=== PATIENT | male | born 1950 | race Caucasian/White ===

== ENCOUNTER 2024-10-25 17:46 | Inpatient (IN) ==
--- NOTE | 2024-10-25 18:21 | DR.CONMALE ---
HPI Time Seen Time Seen by Provider: 10/25/24 18:19 Complaint Chief Complaint Doctors Comments: Complaint of dehydration malnutrition and inability to ambulate due to extreme weakness. Debilitating arthritis and he takes oxycodone tens 4 times a day for that. He sometimes gets constipated when he takes that medications. PMH PMH Past Medical History: Coronary Artery Disease and Hypertension Past Surgical History: Yes Surgical History: CABG/Valve Surgery and Tonsillectomy Family History Family Medical History: Diabetes Mellitus, Cancer, [place] and Hypertension Social History Do you use any recreational Drugs:: No ROS Review of Systems Constitutional: Weakness and Fatigue Eyes: No Symptoms Reported ENTM: No Symptoms Reported Respiratoy: No Symptoms Reported Cardiovascular: No Symptoms Reported Gastrointestinal/Abdominal: Constipation Genitourinary: No Symptoms Reported Neurological: No Symptoms Reported Musculoskeletal: Muscle Pain Integumentary: No Symptoms Reported Hematologic/Lymphatic: No Symptoms Reported Endocrine: No Symptoms Reported Psychiatric: No Symptoms Reported PE Vital Signs Vital Signs: Temp Pulse Resp BP Pulse Ox O2 Del Method 10/26/24 00:15 70 11 L 10/26/24 00:00 70 11 L 10/26/24 00:00 132/86 10/25/24 23:45 73 20 10/25/24 23:30 160/95 10/25/24 23:30 74 12 10/25/24 23:15 72 15 10/25/24 23:00 71 12 10/25/24 22:45 72 18 10/25/24 22:31 73 18 10/25/24 22:31 143/85 10/25/24 22:30 73 17 10/25/24 22:15 73 21 10/25/24 22:00 125/82 10/25/24 22:00 71 20 10/25/24 21:45 71 20 10/25/24 21:30 125/76 10/25/24 21:30 72 21 10/25/24 21:15 74 17 10/25/24 21:00 70 18 10/25/24 20:45 71 20 10/25/24 20:30 73 16 10/25/24 20:30 125/85 10/25/24 20:15 74 24 10/25/24 20:00 131/73 10/25/24 20:00 67 18 10/25/24 19:45 67 11 L 10/25/24 19:30 135/79 10/25/24 19:30 68 12 10/25/24 19:15 67 33 H 10/25/24 19:00 95/68 10/25/24 19:00 71 18 10/25/24 18:45 71 15 10/25/24 18:31 69 9 L 10/25/24 18:31 90/64 10/25/24 18:30 71 12 10/25/24 18:28 71 9 L 10/25/24 18:10 97.7 F 72 20 124/76 95 Room Air General Limitations: Physical Limitation (Nonambulatory due to debilitating arthritis and weakness) General Appearance: In Distress (MILD DISTRESS) Head Head Exam: Normal Inspection, Atraumatic and Normocephalic Eyes Eye exam: Normal Appearance, PERRL and EOMI ENT ENT Exam: Normal Exam, Normal Oropharynx and Normal External Ear Exam Neck Neck Exam: Normal Inspection, Full ROM and Trachea Midline Chest Chest Inspection: Normal Inspection and Symmetric Chest Wall Rise Respiratory Respiratory Exam: Normal Lung Sounds Bilat Respiratory Exam: Bilateral: Clear to Auscultation Cardiovascular Cardiovascular Exam: Regular Rate and Normal Rhythm Gastrointestinal Abdominal Exam: Normal Inspection, Normal Bowel Sounds and Soft Rectal Rectal: Other (Has a stage II sacral decubitus) Extremities Extremities Exam: Joint Swelling (BILATERAL HANDS) Back Back Exam: Normal Inspection Neurological Neurological Exam: Oriented X3 and CN II-XII Intact Psychiatric Psychiatric Exam: Depressed Skin Skin Exam: Warm, Dry and Intact MDM Differential Diagnosis Differential Diagnosis: Constipation and Other (DEHYDRATION,CHRONIC PAIN,ARTHRITIS,FAILURE TO THRIVE) COURSE Treatment Treatment: This patient was given a 1 L bolus of normal saline and was given 2K riders of 10 mill equivalents of potassium for a potassium of 2.4. This is his lab on his CBC had WBC of 7.6 hemoglobin was 18.1 hematocrit was 50.7 and platelets were 136.2 this patient did have a bowel movement in the emergency room so he was no longer constipated here. Patient had a repeat potassium level that was 2.3 after the 2K riders. Did talk to the physician on-call which was Dr. Goodman and told about the potassium and hypokalemia and failure to thrive and we did not mention sacral decubitus and his chronic debilitating arthritis so we got a put him in to try to help correct his potassium and maybe try to give more fluids and maybe give him some food and see if we can get him to reasonable situation where he can be helped with his cachexia with his failure to thrive. We did talk to case management and they said we could put him in for observation. [facility] Labs Reviewed Laboratory Results Reviewed?: Yes 10/25/24 18:05 10/26/24 00:33 Laboratory: WBC 7.6 X10^3/uL (3.6-10.0) 10/25/24 18:05 RBC 5.01 X10^6/uL (4.7-6.0) 10/25/24 18:05 Hgb 18.1 g/dL (13.5-18.0) H 10/25/24 18:05 Hct 50.7 % (42.0-54.0) 10/25/24 18:05 MCV 101.2 fL (80.0-100.0) H 10/25/24 18:05 MCH 36.2 pg (27.0-34.0) H 10/25/24 18:05 MCHC 35.8 g/dL (33.0-35.0) H 10/25/24 18:05 RDW 15.0 % (11.6-16.5) 10/25/24 18:05 Plt Count 134 X10^3/uL (150.0-450.0) L 10/25/24 18:05 MPV 9.0 fL (7.4-11.0) 10/25/24 18:05 Neut % (Auto) 84.3 % (42.0-75.0) H 10/25/24 18:05 Lymph % (Auto) 9.1 % (21.0-51.0) L 10/25/24 18:05 [place] % (Auto) 6.3 % (0.0-13.0) 10/25/24 18:05 Eos % (Auto) 0.1 % (0.9-2.9) L 10/25/24 18:05 Baso % (Auto) 0.2 % (0.2-1.0) 10/25/24 18:05 Neut # (Auto) 6.4 x10^3/uL (2.2-4.8) H 10/25/24 18:05 Lymph # (Auto) 0.1 X10^3/uL (1.3-2.9) L 10/25/24 18:05 [place] # (Auto) 0.2 x10^3/uL (0.3-0.8) L 10/25/24 18:05 Eos # (Auto) 0.0 x10^3/uL (0.0-0.2) 10/25/24 18:05 Baso # (Auto) 0.0 X10^3/uL (0.0-0.1) 10/25/24 18:05 Absolute Nucleated RBC 0.1 /100WBC 10/25/24 18:05 Sodium 142 mmol/L (136-145) 10/26/24 00:33 Corrected Sodium 143 mmol/L (136-145) 10/26/24 00:33 Potassium 2.3 mmol/L (3.5-5.1) L* 10/26/24 00:33 Chloride 99 mmol/L (98-107) 10/26/24 00:33 Carbon Dioxide 42.8 mmol/L (21-32) H 10/26/24 00:33 BUN 23 mg/dL (7-18) H 10/26/24 00:33 Creatinine 0.82 mg/dL (0.70-1.30) 10/26/24 00:33 Est GFR (MDRD) Af Amer > 60 (>60) 10/26/24 00:33 Est GFR (MDRD) Non-Af > 60 (>60) 10/26/24 00:33 Glucose 122 mg/dL (65-99) H 10/26/24 00:33 Calcium 7.5 mg/dL (8.5-10.1) L 10/26/24 00:33 Corrected Calcium 9.3 mg/dL (8.5-10.1) 10/25/24 18:48 Total Bilirubin 1.00 mg/dL (0.2-1.0) 10/25/24 18:48 AST 31 Units/L (15-37) 10/25/24 18:48 ALT 22 Units/L (12-78) 10/25/24 18:48 Alkaline Phosphatase 70 Units/L (46-116) 10/25/24 18:48 Total Protein 6.1 g/dL (6.4-8.2) L 10/25/24 18:48 Albumin 2.3 g/dL (3.4-5.0) L 10/25/24 18:48 Globulin 3.8 g/dL (2.5-4.5) 10/25/24 18:48 Albumin/Globulin Ratio 0.6 Ratio (1.1-2.1) L 10/25/24 18:48 Amylase 198 Units/L (25-115) H 10/25/24 18:48 Lipase 11 Units/L (16-77) L 10/25/24 18:48 Opioid Opioid Risk Tool Age ([place] box if 16-45): No History of Preadolescent Sexual Abuse: No Total: 0 Total Score Risk Category: Low Risk Copyright: [facility] predicting aberrant behaviors Discharge Plan Diagnosis Discharge Problem: Dehydration, moderate, Failure to thrive, Hypokalemia, Sacral decubitus ulcer Discharge Plan Patient Disposition: 09 ADMITTED INPATIENT Condition: Stable Prescriptions: No Action sucralfate 1 gram Tablet 1 g PO BID felodipine 5 mg Tablet Extended Release 24 Hr 5 mg PO ONCE isosorbide mononitrate 30 mg Tablet Extended Release 24 Hr 30 mg PO QAM sertraline [Zoloft] 100 mg Tablet 100 mg PO Q24H clopidogrel [Plavix] 75 mg Tablet 75 mg PO ONCE amitriptyline [Elavil] 50 mg Tablet 50 mg PO QHS potassium chloride 20 mEq Tablet,Er Particles/Crystals 20 meq PO BID levothyroxine [Synthroid] 150 mcg Tablet 150 mcg PO ONCE finasteride 5 mg Tablet 5 mg PO ONCE rosuvastatin 40 mg Tablet 40 mg PO ONCE ranolazine 500 mg Tablet Extended Release 12 Hr 500 mg PO BID pantoprazole [Protonix] [address] For Susp In Packet 40 mg PO BID gabapentin 600 mg Tablet 600 mg PO TID oxycodone 5 mg Tablet 5 mg PO QID PRN Health Concerns: Post Hospitalization: new medications and changes needed to prevent readmission or further decline. Pt educated and given instructions on all concerns. Plan of Treatment: Continue with present treatment and follow up plan. Pt is to keep follow up appointment as instructed and take medications as ordered. Orders to Discharge Patient Discharge Orders: Transfer (Routine); Ordered 10/26/24 Ordered By: Corky Castaneda Follow ups/Referrals Follow ups/Referrals: [facility],None [Primary Care Provider] - 3 days Instructions Stand Alone Forms: Find Help Web Site, Post Hospital Follow Up Care
[2024-10-25 18:25] VITALS: BMI 15.5
[2024-10-25 18:41] LABS: EOSINOPHILS % (AUTO) 0.1 % (0.9-2.9); MEAN CORPUSCULAR HGB CONC 35.8 g/dL (33.0-35.0); MONOCYTES % (AUTO) 6.3 % (0.0-13.0)
[2024-10-25] MEDS: NS 1,000 ML IV 1,000 ML IV ONE (18:51)
[2024-10-25 19:09] LABS: ALANINE AMINOTRANSFERASE 22 Units/L (12-78); ALBUMIN 2.3 g/dL (3.4-5.0); ALKALINE PHOSPHATASE 70 Units/L (46-116); AMYLASE 198 Units/L (25-115); ASPARTATE AMINO TRANSFERASE 31 Units/L (15-37); BLOOD UREA NITROGEN 25 mg/dL (7-18); CALCIUM 7.9 mg/dL (8.5-10.1); CARBON DIOXIDE 44.1 mmol/L (21-32); CHLORIDE 98 mmol/L (98-107); COR CA(FOR HYPOALB) 9.3 mg/dL (8.5-10.1); COR NA(FOR HYPERGLY) 143 mmol/L (136-145); CREATININE 1.01 mg/dL (0.70-1.30); GLUCOSE 134 mg/dL (65-99); LIPASE 11 Units/L (16-77); SODIUM 142 mmol/L (136-145); TOTAL PROTEIN 6.1 g/dL (6.4-8.2); eGFR NON BLACK RACES > 60 (>60)
[2024-10-25 19:12] LABS: POTASSIUM 2.4 mmol/L (3.5-5.1)
[2024-10-25 19:12] LABS: HEMATOCRIT 50.7 % (42.0-54.0); HEMOGLOBIN 18.1 g/dL (13.5-18.0); MEAN CORPUSCULAR HEMOGLOBIN 36.2 pg (27.0-34.0); MEAN CORPUSCULAR VOLUME 101.2 fL (80.0-100.0); RED BLOOD COUNT 5.01 X10^6/uL (4.7-6.0); WHITE BLOOD COUNT 7.6 X10^3/uL (3.6-10.0)
[2024-10-25 19:13] LABS: BASOPHILS % (AUTO) 0.2 % (0.2-1.0); LYMPHOCYTES # (AUTO) 0.1 X10^3/uL (1.3-2.9); LYMPHOCYTES % (AUTO) 9.1 % (21.0-51.0); MONOCYTES # (AUTO) 0.2 x10^3/uL (0.3-0.8); NEUTROPHILS # (AUTO) 6.4 x10^3/uL (2.2-4.8); NEUTROPHILS % (AUTO) 84.3 % (42.0-75.0); PLATELET COUNT 134 X10^3/uL (150.0-450.0)
[2024-10-25] MEDS: K-RIDER 10 MEQ/100 ML WATER 10 MEQ/100 ML BAG IV ONE ×2 (19:54→23:15)
[2024-10-25] MEDS: NS 1,000 ML IV 1,000 ML IV SCH (23:14)
[2024-10-26 00:53] LABS: BLOOD UREA NITROGEN 23 mg/dL (7-18); CALCIUM 7.5 mg/dL (8.5-10.1); CARBON DIOXIDE 42.8 mmol/L (21-32); CHLORIDE 99 mmol/L (98-107); COR NA(FOR HYPERGLY) 143 mmol/L (136-145); CREATININE 0.82 mg/dL (0.70-1.30); GLUCOSE 122 mg/dL (65-99); SODIUM 142 mmol/L (136-145); eGFR NON BLACK RACES > 60 (>60)
[2024-10-26 00:54] LABS: POTASSIUM 2.3 mmol/L (3.5-5.1)
[2024-10-26] MEDS: CONSULT PHARMACY - POTASSIUM & MAGNESIUM XX SCH (04:17)
[2024-10-26 05:30] LABS: BASOPHILS % (AUTO) 0.1 % (0.2-1.0); EOSINOPHILS % (AUTO) 0.1 % (0.9-2.9); HEMATOCRIT 49.7 % (42.0-54.0); HEMOGLOBIN 17.6 g/dL (13.5-18.0); LYMPHOCYTES # (AUTO) 0.5 X10^3/uL (1.3-2.9); LYMPHOCYTES % (AUTO) 7.9 % (21.0-51.0); MEAN CORPUSCULAR HEMOGLOBIN 35.7 pg (27.0-34.0); MEAN CORPUSCULAR HGB CONC 35.4 g/dL (33.0-35.0); MEAN CORPUSCULAR VOLUME 100.6 fL (80.0-100.0); MEAN PLATELET VOLUME 8.4 fL (7.4-11.0); MONOCYTES # (AUTO) 0.4 x10^3/uL (0.3-0.8); NEUTROPHILS # (AUTO) 5.8 x10^3/uL (2.2-4.8); NEUTROPHILS % (AUTO) 85.9 % (42.0-75.0); PLATELET COUNT 107 X10^3/uL (150.0-450.0); RED BLOOD COUNT 4.94 X10^6/uL (4.7-6.0); RED CELL DISTRIBUTION WIDTH 14.9 % (11.6-16.5); WHITE BLOOD COUNT 6.8 X10^3/uL (3.6-10.0)
[2024-10-26 05:47] LABS: ALANINE AMINOTRANSFERASE 21 Units/L (12-78); ALBUMIN 2.1 g/dL (3.4-5.0); ALKALINE PHOSPHATASE 69 Units/L (46-116); ASPARTATE AMINO TRANSFERASE 37 Units/L (15-37); BLOOD UREA NITROGEN 22 mg/dL (7-18); CALCIUM 7.8 mg/dL (8.5-10.1); CARBON DIOXIDE 39.5 mmol/L (21-32); CHLORIDE 99 mmol/L (98-107); COR CA(FOR HYPOALB) 9.3 mg/dL (8.5-10.1); COR NA(FOR HYPERGLY) 142 mmol/L (136-145); CREATININE 0.84 mg/dL (0.70-1.30); GLUCOSE 111 mg/dL (65-99); SODIUM 142 mmol/L (136-145); TOTAL PROTEIN 5.8 g/dL (6.4-8.2); eGFR NON BLACK RACES > 60 (>60)
[2024-10-26 06:05] LABS: POTASSIUM 2.5 mmol/L (3.5-5.1)
[2024-10-26] MEDS: NS 1,000 ML IV 1,000 ML ONE (07:29)
[2024-10-26] MEDS: NICOTINE PATCH TD SCH (12:12)
[2024-10-26] MEDS: K-DUR TAB 20 MEQ PO SCH (12:13)
[2024-10-26] MEDS: PLAVIX PO SCH (15:34)
[2024-10-26] MEDS: CLARITIN PO SCH (15:35)
[2024-10-26] MEDS: PROSCAR PO SCH (15:35)
[2024-10-26] MEDS: PERCOCET TAB 5/325 MG PO PRN (15:36)
--- NOTE | 2024-10-26 17:58 | DR.H&P ---
H&P History & Physical for Day of: H&P Date: 10/26/24 Chief Complaint Chief Complaint: Complaint of dehydration, malnutrition and inability to ambulate due to extreme weakness which was causing him to fall more frequently. History of Present Illness History of Present Illness: This is a frail 74-year-old white male who has great amount of difficulty answering questions. I see that he informed the ER physician last night that he has been having an increased amount of falling and any has been having increased weakness and not eating as much and drinking is much. He has been having much more weakness and he reports a very significant amount of weight loss over the last several months but he does not know the amount of weight that he has lost. He states that he lives with his girlfriend but she is not present this morning and he is unable to give any detailed answers. Mr. Cote is a who previously served in the [employer]. He receives care at the [facility] in [place], [place], where his regular doctor is Mag. He has chronic back problems for which he receives opioid pain medication that caused him to have a lot of constipation. The patient lives with his girlfriend who helps take care of him. He reports recent weight loss, though the amount is unspecified. Mr. Cote smokes 2-3 packs of cigarettes per day. He denies alcohol consumption. He visits the [facility] every 90 days for care. Clinical observations: 1. Patient presented to the ER last night with "a little of everything" 2. Potassium levels were low: 2.4 yesterday, 2.5 today 3. Patient does not appear dehydrated based on creatinine levels 4. No reported coughing up blood or passing blood in stool 5. Patient has experienced recent weight loss, though the amount is unspecified 6. Patient smokes 2-3 packs of cigarettes per day 7. Patient denies alcohol consumption 8. No workup has been done at the [facility] for the reported weight loss but they are aware of his weight loss he reports. 9. Patient is unable to recall specifics about his last [facility] appointment or when his next one is scheduled Past Medical History Past Medical History: Coronary Artery Disease and Hypertension Past Surgical History Surgical History: Tonsillectomy Family History Family Medical History: Diabetes Mellitus, Cancer, [place] and Hypertension Social History Does patient currently use any type of tobacco product: Yes Have you used tobacco products in the last 12 months: Yes Type of Tobacco Use: Cigarettes Does any household member use tobacco: No Alcohol Use: None Drug Use: None Medications Home Medications: Home Medications Medication Instructions Recorded Confirmed Type clopidogrel 75 mg tablet 75 mg PO QDAY 10/26/24 10/26/24 History finasteride 5 mg tablet 5 mg PO QDAY 10/26/24 10/26/24 History furosemide 20 mg tablet 20 mg PO QDAY 10/26/24 10/26/24 History isosorbide mononitrate 20 mg tablet 30 mg PO BID 10/26/24 10/26/24 History levothyroxine 150 mcg tablet 150 mcg PO QDAY 10/26/24 10/26/24 History (Synthroid) loratadine 10 mg tablet 10 mg PO QDAY 10/26/24 10/26/24 History lubiprostone 24 mcg capsule 24 mcg PO BID 10/26/24 10/26/24 History nitroglycerin 0.4 mg sublingual 0.4 mg sublingual Q5-15M PRN 10/26/24 10/26/24 History tablet oxycodone-acetaminophen 5 mg-325 1 tab PO Q6H PRN 10/26/24 10/26/24 History mg tablet pantoprazole 40 mg tablet,delayed 40 mg PO BID 10/26/24 10/26/24 History release potassium chloride 20 mEq 10 meq PO QDAY 10/26/24 10/26/24 History tablet,extended release ranolazine 500 mg tablet,extended 500 mg PO BID PRN Chest Pain 10/26/24 10/26/24 History release,12 hr rosuvastatin 40 mg tablet 40 mg PO HS 10/26/24 10/26/24 History Allergies Allergies Allergy/AdvReac Type Severity Reaction Status Date / Time No Known Drug Allergies Allergy Verified 01/22/19 21:48 Labs 10/26/24 04:57 10/26/24 04:57 Labs: Laboratory WBC 6.8 X10^3/uL (3.6-10.0) 10/26/24 04:57 RBC 4.94 X10^6/uL (4.7-6.0) 10/26/24 04:57 Hgb 17.6 g/dL (13.5-18.0) 10/26/24 04:57 Hct 49.7 % (42.0-54.0) 10/26/24 04:57 MCV 100.6 fL (80.0-100.0) H 10/26/24 04:57 MCH 35.7 pg (27.0-34.0) H 10/26/24 04:57 MCHC 35.4 g/dL (33.0-35.0) H 10/26/24 04:57 RDW 14.9 % (11.6-16.5) 10/26/24 04:57 Plt Count 107 X10^3/uL (150.0-450.0) L 10/26/24 04:57 MPV 8.4 fL (7.4-11.0) 10/26/24 04:57 Neut % (Auto) 85.9 % (42.0-75.0) H 10/26/24 04:57 Lymph % (Auto) 7.9 % (21.0-51.0) L 10/26/24 04:57 [place] % (Auto) 6.0 % (0.0-13.0) 10/26/24 04:57 Eos % (Auto) 0.1 % (0.9-2.9) L 10/26/24 04:57 Baso % (Auto) 0.1 % (0.2-1.0) L 10/26/24 04:57 Neut # (Auto) 5.8 x10^3/uL (2.2-4.8) H 10/26/24 04:57 Lymph # (Auto) 0.5 X10^3/uL (1.3-2.9) L 10/26/24 04:57 [place] # (Auto) 0.4 x10^3/uL (0.3-0.8) 10/26/24 04:57 Eos # (Auto) 0.0 x10^3/uL (0.0-0.2) 10/26/24 04:57 Baso # (Auto) 0.0 X10^3/uL (0.0-0.1) 10/26/24 04:57 Absolute Nucleated RBC 0.0 /100WBC 10/26/24 04:57 Sodium 142 mmol/L (136-145) 10/26/24 04:57 Corrected Sodium 142 mmol/L (136-145) 10/26/24 04:57 Potassium 2.5 mmol/L (3.5-5.1) L* 10/26/24 04:57 Chloride 99 mmol/L (98-107) 10/26/24 04:57 Carbon Dioxide 39.5 mmol/L (21-32) H 10/26/24 04:57 BUN 22 mg/dL (7-18) H 10/26/24 04:57 Creatinine 0.84 mg/dL (0.70-1.30) 10/26/24 04:57 Est GFR (MDRD) Af Amer > 60 (>60) 10/26/24 04:57 Est GFR (MDRD) Non-Af > 60 (>60) 10/26/24 04:57 Glucose 111 mg/dL (65-99) H 10/26/24 04:57 Calcium 7.8 mg/dL (8.5-10.1) L 10/26/24 04:57 Corrected Calcium 9.3 mg/dL (8.5-10.1) 10/26/24 04:57 Magnesium 2.2 mg/dL (2.0-2.9) 10/26/24 04:57 Total Bilirubin 0.90 mg/dL (0.2-1.0) 10/26/24 04:57 AST 37 Units/L (15-37) 10/26/24 04:57 ALT 21 Units/L (12-78) 10/26/24 04:57 Alkaline Phosphatase 69 Units/L (46-116) 10/26/24 04:57 Total Protein 5.8 g/dL (6.4-8.2) L 10/26/24 04:57 Albumin 2.1 g/dL (3.4-5.0) L 10/26/24 04:57 Globulin 3.7 g/dL (2.5-4.5) 10/26/24 04:57 Albumin/Globulin Ratio 0.6 Ratio (1.1-2.1) L 10/26/24 04:57 Amylase 198 Units/L (25-115) H 10/25/24 18:48 Lipase 11 Units/L (16-77) L 10/25/24 18:48 Review of Systems Constitutional: Weakness and Malaise Eyes: No Symptoms Reported ENT: No Symptoms Reported Respiratory: denies Cough, Shortness of Breath, Hemoptysis, SOB with Excertion, Pleuritic Pain, Sputum or Wheezing Cardiovascular: No Symptoms Reported Gastrointestinal: Constipation; denies Vomiting Genitourinary: No Symptoms Reported Musculoskeletal: Back Pain Skin: No Symptoms Reported Neurological: No Symptoms Reported Physical Exam Vital Signs: Vital Signs Temperature 98.4 F Pulse Rate 74 Pulse Rate 75 Pulse Rate 81 Pulse Rate 89 Pulse Rate 74 Pulse Rate 70 Pulse Rate 71 Pulse Rate 73 Pulse Rate 65 Pulse Rate 65 Pulse Rate 65 Pulse Rate 65 Respiratory Rate 15 Respiratory Rate 18 Respiratory Rate 17 Respiratory Rate 19 Respiratory Rate 20 Respiratory Rate 18 Respiratory Rate 20 Respiratory Rate 20 Respiratory Rate 19 Respiratory Rate 18 Respiratory Rate 19 Respiratory Rate 19 Respiratory Rate 18 Blood Pressure 156/97 O2 Sat by Pulse Oximetry 100 O2 Sat by Pulse Oximetry 97 O2 Sat by Pulse Oximetry 99 O2 Sat by Pulse Oximetry 100 O2 Sat by Pulse Oximetry 100 O2 Sat by Pulse Oximetry 100 O2 Sat by Pulse Oximetry 100 O2 Sat by Pulse Oximetry 100 O2 Sat by Pulse Oximetry 100 O2 Sat by Pulse Oximetry 100 Oriented: Not Oriented Eyes: Normal Ear: Normal Nose: Normal Throat: Normal Respiratory: Clear Throughout Cardiovascular: Normal Auscultation: Bowel Sounds: Normal Palpation: Normal Tenderness: Normal Skin: Decreased [place] Musculoskeletal: Normal Psychiatric: Normal Mood Description: Calm Affect: Flat Speech Pattern: Clear; negative Inappropriate, Delayed, Excessive, Aphasic or Unable to speak Assessment/Plan (1) Hypokalemia: Status: Acute Plan: Continue potassium replacement protocol at this time. Repeat CMP in the a.m. as well as magnesium. (2) Failure to thrive: Qualifiers: Failure to thrive age range: in adult Qualified Code(s): R62.7 - Adult failure to thrive Status: Acute Plan: We will see if we can get in touch with the patient's girlfriend to see what has been going on with him since he does not seem very confident in answering questions and I do not know what he saying is 100% reliable. I will see if I can find out how much weight the patient claims to have lost over the last several months and when his follow-up appointment is when his physician at the [facility] in [place], [place]. Review H&P Reviewed: Yes Patient was examined?: Yes
[2024-10-26 20:17] VITALS: O2SAT 100
[2024-10-26] MEDS: MONOKET or IMDUR PO SCH (21:26)
[2024-10-26] MEDS: PROTONIX TAB 40 MG PO SCH (21:27)
[2024-10-26] MEDS: RANEXA PO SCH (21:27)
[2024-10-26] MEDS: CRESTOR TAB 10 MG PO SCH (21:27)
[2024-10-27 05:30] LABS: BASOPHILS % (AUTO) 0 % (0.2-1.0); EOSINOPHILS % (AUTO) 0.1 % (0.9-2.9); HEMOGLOBIN 16.3 g/dL (13.5-18.0); LYMPHOCYTES # (AUTO) 0.6 X10^3/uL (1.3-2.9); LYMPHOCYTES % (AUTO) 7.6 % (21.0-51.0); MEAN CORPUSCULAR HEMOGLOBIN 34.8 pg (27.0-34.0); MEAN CORPUSCULAR HGB CONC 34.7 g/dL (33.0-35.0); MEAN CORPUSCULAR VOLUME 100.3 fL (80.0-100.0); MEAN PLATELET VOLUME 8.6 fL (7.4-11.0); MONOCYTES # (AUTO) 0.6 x10^3/uL (0.3-0.8); MONOCYTES % (AUTO) 7.7 % (0.0-13.0); NEUTROPHILS # (AUTO) 6.2 x10^3/uL (2.2-4.8); NEUTROPHILS % (AUTO) 84.6 % (42.0-75.0); PLATELET COUNT 109 X10^3/uL (150.0-450.0); RED BLOOD COUNT 4.69 X10^6/uL (4.7-6.0); WHITE BLOOD COUNT 7.3 X10^3/uL (3.6-10.0)
[2024-10-27 05:51] LABS: ALANINE AMINOTRANSFERASE 23 Units/L (12-78); ALKALINE PHOSPHATASE 65 Units/L (46-116); ASPARTATE AMINO TRANSFERASE 42 Units/L (15-37); BLOOD UREA NITROGEN 19 mg/dL (7-18); CALCIUM 7.3 mg/dL (8.5-10.1); CARBON DIOXIDE 37.7 mmol/L (21-32); CHLORIDE 99 mmol/L (98-107); COR CA(FOR HYPOALB) 8.9 mg/dL (8.5-10.1); CREATININE 0.71 mg/dL (0.70-1.30); GLUCOSE 100 mg/dL (65-99); MAGNESIUM 2.1 mg/dL (2.0-2.9); SODIUM 139 mmol/L (136-145); TOTAL PROTEIN 5.5 g/dL (6.4-8.2); eGFR NON BLACK RACES > 60 (>60)
[2024-10-27 05:54] LABS: POTASSIUM 2.7 mmol/L (3.5-5.1)
[2024-10-27] MEDS: SYNTHROID 150 mcg TAB PO SCH (06:02)
[2024-10-27] MEDS: CONSULT PHARMACY - POTASSIUM & MAGNESIUM XX SCH (06:17)
[2024-10-27] MEDS: LASIX PO SCH (08:14)
[2024-10-27] MEDS: KLOR-CON 10 MEQ TAB PO SCH (08:14)
--- NOTE | 2024-10-27 08:17 | RAD ---
EXAM: AP chest HISTORY: Dehydration hypokalemia COMPARISON: 03/04/2022 FINDINGS: Heart size continues normal with sternal wires. There is nonspecific interstitial pulmonary promine nce which may be related to the nonstandard technical factors. There is no definite pneumonia, sadaf pulmonary edema or pleural effusion. IMPRESSION: No change. THIS IS AN ELECTRONICALLY VERIFIED FINAL REPORT 10/27/2024 8:14 AM - Electronically signed by Contreras Iqbal MD
[2024-10-27] MEDS: K-DUR TAB 20 MEQ PO SCH (11:52)
[2024-10-27] MEDS: POTASSIUM CHLORIDE LIQ PO ONE ×2 (15:01→18:25)
--- NOTE | 2024-10-27 20:13 | PCM.PROG ---
Progress Note Progress Note for Day of Date of Exam: 10/27/24 Subjective Subjective: History/Background The patient is a 75-year-old white male elderly male with a history of coronary artery disease, COPD/emphysema, BPH, hypothyroidism, chronic back pain, hyperlipidemia, and acid reflux. He takes Plavix, finasteride, Lasix, potassium chloride 10 mEq p.o. daily, pantoprazole, isosorbide mononitrate 30 mg p.o. twice daily, levothyroxine, loratadine, and Percocet for chronic back pain. 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 He typically receives care at the [facility] in [place] and is supposed to have urine tests every 3 months to receive his medications by mail. The patient came in a couple of nights ago not feeling well, with increasing wea kness and difficulty with ambulation and falling. He was found to be dehydrated and to be profoundly hypokalemic. We have been replacing his potassium over the last few days which she has been slowly responding to. This morning, he is 2.7, so we continued to replace potassium throughout the day, and in late afternoon, he was 2.9. We will get a result back because he was so late in the evening. We will keep him until tomorrow and continue oral replacement with potassium chloride elixir. Clinical observations: 1. Patient having difficulty answering questions, knows what he wants to say but struggles to verbalize. 2. Potassium level is low at 2.7 this morning; previously, it was 2.4 on admission, dropping to 2.3 after midnight. 3. Good kidney function for age. 4. Chest x-ray yesterday was normal. 5. Albumin is low, indicating possible decreased protein intake. 6. Hemoglobin 16.3 grams. 7. No signs of infection or anemia. 8. Platelet count normal. 9. Sodium level normal. 10. Slight dehydration was observed on admission, and the patient was addressed with IV fluids. 11. Blood sugar okay, patient is not diabetic. 12. Liver tests show few points elevated on one test. 13. Total protein okay. 14. Patient's appetite seems good, but recent eating habits suggest decreased intake, especially of protein. 15. The patient may have been recovering from a cold last month, potentially impacting overall health. Past Medical Family Social History Allergies: Allergies No Known Drug Allergies Allergy (Verified 01/22/19 21:48) Review of Systems ROS: No change since H&P Vital Signs and I&O's Vital Signs: Vital Signs Temperature 98.3 F Pulse Rate 66 Respiratory Rate 18 Respiratory Rate 19 Respiratory Rate 19 Blood Pressure 107/71 O2 Sat by Pulse Oximetry 100 Intake and Output: Intake & Output 10/25/24 10/26/24 10/27/24 10/28/24 11:59 11:59 11:59 11:59 Intake Total 333 / 333 955 / 955 286 / 286 Output Total 125 / 125 660 / 660 400 / 400 Balance 208 / 208 295 / 295 -114 / -114 Physical Exam Oriented: Not Oriented Eyes: Normal Ear: Normal Nose: Normal Throat: Normal Respiratory: Normal Cardiovascular: Normal Auscultation: Bowel Sounds: Normal Tenderness: Normal Skin: Decreased [place]urgur Musculoskeletal: Normal Psychiatric: Normal Mood Description: Calm Affect: Flat Speech Pattern: Unclear Laboratory and Diagnostics 10/27/24 04:15 10/27/24 16:56 Labs: Laboratory WBC 7.3 X10^3/uL (3.6-10.0) 10/27/24 04:15 RBC 4.69 X10^6/uL (4.7-6.0) L 10/27/24 04:15 Hgb 16.3 g/dL (13.5-18.0) 10/27/24 04:15 Hct 47.0 % (42.0-54.0) 10/27/24 04:15 MCV 100.3 fL (80.0-100.0) H 10/27/24 04:15 MCH 34.8 pg (27.0-34.0) H 10/27/24 04:15 MCHC 34.7 g/dL (33.0-35.0) 10/27/24 04:15 RDW 15.0 % (11.6-16.5) 10/27/24 04:15 Plt Count 109 X10^3/uL (150.0-450.0) L 10/27/24 04:15 MPV 8.6 fL (7.4-11.0) 10/27/24 04:15 Neut % (Auto) 84.6 % (42.0-75.0) H 10/27/24 04:15 Lymph % (Auto) 7.6 % (21.0-51.0) L 10/27/24 04:15 [place] % (Auto) 7.7 % (0.0-13.0) 10/27/24 04:15 Eos % (Auto) 0.1 % (0.9-2.9) L 10/27/24 04:15 Baso % (Auto) 0 % (0.2-1.0) L 10/27/24 04:15 Neut # (Auto) 6.2 x10^3/uL (2.2-4.8) H 10/27/24 04:15 Lymph # (Auto) 0.6 X10^3/uL (1.3-2.9) L 10/27/24 04:15 [place] # (Auto) 0.6 x10^3/uL (0.3-0.8) 10/27/24 04:15 Eos # (Auto) 0.0 x10^3/uL (0.0-0.2) 10/27/24 04:15 Baso # (Auto) 0.0 X10^3/uL (0.0-0.1) 10/27/24 04:15 Absolute Nucleated RBC 0.1 /100WBC 10/27/24 04:15 Sodium 139 mmol/L (136-145) 10/27/24 04:15 Corrected Sodium TNP 10/27/24 04:15 Potassium 2.9 mmol/L (3.5-5.1) L* 10/27/24 16:56 Chloride 99 mmol/L (98-107) 10/27/24 04:15 Carbon Dioxide 37.7 mmol/L (21-32) H 10/27/24 04:15 BUN 19 mg/dL (7-18) H 10/27/24 04:15 Creatinine 0.71 mg/dL (0.70-1.30) 10/27/24 04:15 Est GFR (MDRD) Af Amer > 60 (>60) 10/27/24 04:15 Est GFR (MDRD) Non-Af > 60 (>60) 10/27/24 04:15 Glucose 100 mg/dL (65-99) H 10/27/24 04:15 Calcium 7.3 mg/dL (8.5-10.1) L 10/27/24 04:15 Corrected Calcium 8.9 mg/dL (8.5-10.1) 10/27/24 04:15 Magnesium 2.1 mg/dL (2.0-2.9) 10/27/24 04:15 Total Bilirubin 0.90 mg/dL (0.2-1.0) 10/27/24 04:15 AST 42 Units/L (15-37) H 10/27/24 04:15 ALT 23 Units/L (12-78) 10/27/24 04:15 Alkaline Phosphatase 65 Units/L (46-116) 10/27/24 04:15 Total Protein 5.5 g/dL (6.4-8.2) L 10/27/24 04:15 Albumin 2.0 g/dL (3.4-5.0) L 10/27/24 04:15 Globulin 3.5 g/dL (2.5-4.5) 10/27/24 04:15 Albumin/Globulin Ratio 0.6 Ratio (1.1-2.1) L 10/27/24 04:15 Amylase 198 Units/L (25-115) H 10/25/24 18:48 Lipase 11 Units/L (16-77) L 10/25/24 18:48 Plan (1) Hypokalemia: Status: Acute Narrative Support Text: The patient is still with low potassium levels. Plan: Continue potassium replacement protocol at this time. Repeat CMP in the a.m. as well as magnesium. (2) Failure to thrive: Status: Acute Qualifiers: Failure to thrive age range: in adult Qualified Code(s): R62.7 - Adult failure to thrive Plan: 1. Administer 60 caryn-equivalents of potassium in one dose to address low potassium levels. 2. Recheck potassium levels in a couple of hours. 3. If potassium normalizes, discharge patient mid-afternoon. 4. If potassium does not normalize by afternoon, we will keep the patient another night and reassess for discharge tomorrow. 5. Ensure the patient resumes regular potassium supplementation with Lasix at home. 6. Advise patient to maintain regular follow-ups and urine tests at the [facility] to ensure continuous medication supply. (3) Dehydration, moderate: Status: Acute Plan: Continue slow IV hydration. (4) COPD (chronic obstructive pulmonary disease): Status: Acute Qualifiers: Qualified Code(s): J44.9 - Chronic obstructive pulmonary disease, unspecified Narrative Support Text: Stable at this time. Plan: Encourage the patient to decrease smoking cigarettes.
[2024-10-28 05:15] LABS: BASOPHILS % (AUTO) 0.1 % (0.2-1.0); EOSINOPHILS % (AUTO) 0.1 % (0.9-2.9); HEMATOCRIT 46.1 % (42.0-54.0); HEMOGLOBIN 16.2 g/dL (13.5-18.0); LYMPHOCYTES # (AUTO) 0.4 X10^3/uL (1.3-2.9); LYMPHOCYTES % (AUTO) 6.5 % (21.0-51.0); MEAN CORPUSCULAR HEMOGLOBIN 34.9 pg (27.0-34.0); MEAN CORPUSCULAR HGB CONC 35.1 g/dL (33.0-35.0); MEAN CORPUSCULAR VOLUME 99.4 fL (80.0-100.0); MEAN PLATELET VOLUME 8.5 fL (7.4-11.0); MONOCYTES # (AUTO) 0.5 x10^3/uL (0.3-0.8); MONOCYTES % (AUTO) 7.4 % (0.0-13.0); NEUTROPHILS # (AUTO) 5.7 x10^3/uL (2.2-4.8); NEUTROPHILS % (AUTO) 85.9 % (42.0-75.0); PLATELET COUNT 102 X10^3/uL (150.0-450.0); RED BLOOD COUNT 4.64 X10^6/uL (4.7-6.0); RED CELL DISTRIBUTION WIDTH 15.1 % (11.6-16.5); WHITE BLOOD COUNT 6.7 X10^3/uL (3.6-10.0)
[2024-10-28 05:26] LABS: ALANINE AMINOTRANSFERASE 40 Units/L (12-78); ALBUMIN 1.9 g/dL (3.4-5.0); ALKALINE PHOSPHATASE 84 Units/L (46-116); ASPARTATE AMINO TRANSFERASE 64 Units/L (15-37); BLOOD UREA NITROGEN 13 mg/dL (7-18); CALCIUM 7.2 mg/dL (8.5-10.1); CARBON DIOXIDE 35.5 mmol/L (21-32); CHLORIDE 99 mmol/L (98-107); COR CA(FOR HYPOALB) 8.9 mg/dL (8.5-10.1); COR NA(FOR HYPERGLY) 137 mmol/L (136-145); GLUCOSE 113 mg/dL (65-99); SODIUM 137 mmol/L (136-145); TOTAL PROTEIN 5.5 g/dL (6.4-8.2); eGFR NON BLACK RACES > 60 (>60)
[2024-10-28 05:42] LABS: POTASSIUM 2.9 mmol/L (3.5-5.1)
[2024-10-28] MEDS ORDERED: CONSULT PHARMACY - POTASSIUM & MAGNESIUM XX SCH (06:00)
[2024-10-28] MEDS ORDERED: PHARMACY CONSULT - LOVENOX XX SCH (08:00)
[2024-10-28] MEDS: LOVENOX INJ 30 MG SYR SC SCH (09:09)
[2024-10-28] MEDS: K-DUR TAB 20 MEQ PO ONE (09:46)
[2024-10-28] MEDS ORDERED: K-DUR TAB 20 MEQ PO SCH ×2 (10:00→11:00)
[2024-10-28] MEDS: NS + KCL 40 MEQ/L 1,000 ML IV SCH (10:51)
[2024-10-28 12:01] LABS: ALANINE AMINOTRANSFERASE 33 Units/L (12-78); ALBUMIN 1.8 g/dL (3.4-5.0); ALKALINE PHOSPHATASE 84 Units/L (46-116); ASPARTATE AMINO TRANSFERASE 46 Units/L (15-37); BLOOD UREA NITROGEN 12 mg/dL (7-18); CARBON DIOXIDE 35.8 mmol/L (21-32); CHLORIDE 99 mmol/L (98-107); COR CA(FOR HYPOALB) 8.8 mg/dL (8.5-10.1); COR NA(FOR HYPERGLY) 137 mmol/L (136-145); CREATININE 0.71 mg/dL (0.70-1.30); GLUCOSE 184 mg/dL (65-99); POTASSIUM 3.1 mmol/L (3.5-5.1); SODIUM 135 mmol/L (136-145); TOTAL PROTEIN 5.2 g/dL (6.4-8.2); eGFR NON BLACK RACES > 60 (>60)
[2024-10-28 12:16] VITALS: BP 122/81; PULSE 75; RESP 14
[2024-10-28 13:01] VITALS: TEMP 98.2
== END 2024-10-28 13:35 | disposition home or self-care (01) | DRG 641 ==
LOC: ICU 17:46 → ER 17:46 → OBSVTOIN 10-26 01:57 → ICU 10-26 02:23
PROVIDERS: ADMIT Family Medicine; ATTEND Family Medicine
DX: E87.6 Hypokalemia; K21.9 Gastro-esophageal reflux disease without esophagitis; R53.1 Weakness; Z74.1 Need for assistance with personal care; E46 Unspecified protein-calorie malnutrition; M54.9 Dorsalgia, unspecified; Z79.01 Long term (current) use of anticoagulants; E03.8 Other specified hypothyroidism; Z68.1 Body mass index [BMI] 19.9 or less, adult; Z59.86 Financial insecurity; L89.159 Pressure ulcer of sacral region, unspecified stage; I25.10 Atherosclerotic heart disease of native coronary artery without angina pectoris; Z72.0 Tobacco use; J44.9 Chronic obstructive pulmonary disease, unspecified; E78.5 Hyperlipidemia, unspecified; R73.09 Other abnormal glucose; R62.7 Adult failure to thrive; I10 Essential (primary) hypertension; E86.0 Dehydration

== ENCOUNTER 2024-11-05 16:00 | Inpatient (IN) ==
--- NOTE | 2024-11-05 16:24 | DR.GENAD ---
HPI Time Seen Time Seen by Provider: 11/05/24 16:21 HPI Comment HPI Comment: Patient brought into ER because patient's family stated that he was having difficulty taking care of himself at home since he has had a history of 2 CVAs with right hemiplegia and a sacral decubitus ulcer. Initially they said the ulcer they thought was infected and then they said that it was more of an issue of not being able to take care of him at home since his is equally or more disabled than he has. He is a COPD year on home oxygen and he states that he has not been using his oxygen at home. He denies any fever. He does have difficulty with his ADLs but he states he is at his baseline. COVID-19 Coronavirus risk:travel/contact w/high risk person: No Has patient experienced Coronavirus symptoms: No PMH PMH Past Medical History: Coronary Artery Disease and Hypertension Past Surgical History: Yes Surgical History: Tonsillectomy Family History Family Medical History: Diabetes Mellitus, Cancer, [place] and Hypertension Social History Do you use any recreational Drugs:: No Travel Risk Coronavirus risk:travel/contact w/high risk person: No Has patient experienced Coronavirus symptoms: No ROS Review of Systems Constitutional: No Symptoms Reported Eyes: No Symptoms Reported ENTM: No Symptoms Reported Respiratoy: See HPI (Chronic COPD at baseline.) Cardiovascular: No Symptoms Reported Gastrointestinal/Abdominal: No Symptoms Reported Genitourinary: No Symptoms Reported Neurological: Pre-existing Deficit (Right hemiplegia at baseline.) Musculoskeletal: No Symptoms Reported Integumentary: See HPI Hematologic/Lymphatic: No Symptoms Reported Endocrine: No Symptoms Reported Psychiatric: No Symptoms Reported All Other Systems: Reviewed and Negative PE Vital Signs Vitals: Vital Signs Temperature 98.0 F Pulse Rate 78 Respiratory Rate 18 Blood Pressure 140/100 O2 Sat by Pulse Oximetry 93 General Limitations: Physical Limitation General Appearance: Alert and In No Apparent Distress Head Head Exam: Normal Inspection Eyes Eye exam: Normal Appearance ENT ENT Exam: Normal Exam External Ear Exam: Normal External Inspection TM/Canal Exam: Bilateral: Normal Nose Exam: Normal Nose Exam Mouth Exam: Normal Inspection Throat Exam: Normal Inspection Neck Neck Exam: Normal Inspection Chest Chest Inspection: Normal Inspection Respiratory Respiratory Exam: Normal Lung Sounds Bilat Respiratory Exam: Bilateral: Clear to Auscultation Cardiovascular Cardiovascular Exam: Regular Rate and Normal Rhythm Abdominal Exam Abdominal Exam: Normal Inspection, Normal Bowel Sounds and Soft Extremities Extremities Exam: Normal Inspection Back Back Exam: Normal Inspection Neurologic Neurological Exam: Alert, Oriented X3 and Motor Sensory Deficit (Right hemiplegia at baseline) Psychiatric Psychiatric Exam: Normal Affect and Normal Mood Skin Skin Exam: Warm, Dry, Intact and Normal Color COURSE Consultation Called: 19:19 Consultation Comments: Discussed case with Dr. Garza. Discussed labs findings with patient case and he is agreeable to admit patient and possibly help with placement. [facility] Labs Reviewed 11/05/24 16:51 11/05/24 16:51 Laboratory: WBC 6.7 X10^3/uL (3.6-10.0) 11/05/24 16:51 RBC 5.12 X10^6/uL (4.7-6.0) 11/05/24 16:51 Hgb 18.4 g/dL (13.5-18.0) H 11/05/24 16:51 Hct 51.4 % (42.0-54.0) 11/05/24 16:51 MCV 100.4 fL (80.0-100.0) H 11/05/24 16:51 MCH 36.0 pg (27.0-34.0) H 11/05/24 16:51 MCHC 35.8 g/dL (33.0-35.0) H 11/05/24 16:51 RDW 15.3 % (11.6-16.5) 11/05/24 16:51 Plt Count 110 X10^3/uL (150.0-450.0) L 11/05/24 16:51 MPV 8.1 fL (7.4-11.0) 11/05/24 16:51 Neut % (Auto) 85.4 % (42.0-75.0) H 11/05/24 16:51 Lymph % (Auto) 7.6 % (21.0-51.0) L 11/05/24 16:51 [facility] % (Auto) 6.9 % (0.0-13.0) 11/05/24 16:51 Eos % (Auto) 0.0 % (0.9-2.9) L 11/05/24 16:51 Baso % (Auto) 0.1 % (0.2-1.0) L 11/05/24 16:51 Neut # (Auto) 5.7 x10^3/uL (2.2-4.8) H 11/05/24 16:51 Lymph # (Auto) 0.5 X10^3/uL (1.3-2.9) L 11/05/24 16:51 [facility] # (Auto) 0.5 x10^3/uL (0.3-0.8) 11/05/24 16:51 Eos # (Auto) 0.0 x10^3/uL (0.0-0.2) 11/05/24 16:51 Baso # (Auto) 0.0 X10^3/uL (0.0-0.1) 11/05/24 16:51 Absolute Nucleated RBC 0.1 /100WBC 11/05/24 16:51 Sodium 139 mmol/L (136-145) 11/05/24 16:51 Corrected Sodium 140 mmol/L (136-145) 11/05/24 16:51 Potassium 3.0 mmol/L (3.5-5.1) L 11/05/24 16:51 Chloride 99 mmol/L (98-107) 11/05/24 16:51 Carbon Dioxide 40.7 mmol/L (21-32) H 11/05/24 16:51 BUN 30 mg/dL (7-18) H 11/05/24 16:51 Creatinine 0.78 mg/dL (0.70-1.30) 11/05/24 16:51 Est GFR (MDRD) Af Amer > 60 (>60) 11/05/24 16:51 Est GFR (MDRD) Non-Af > 60 (>60) 11/05/24 16:51 Glucose 122 mg/dL (65-99) H 11/05/24 16:51 Calcium 7.7 mg/dL (8.5-10.1) L 11/05/24 16:51 Opioid Opioid Risk Tool Age ([place] box if 16-45): No History of Preadolescent Sexual Abuse: No Total: 0 Total Score Risk Category: Low Risk Copyright: Agustin ROSADO predicting aberrant behaviors Discharge Plan Diagnosis Discharge Problem: Adult failure to thrive, COPD (chronic obstructive pulmonary disease), Hypokalemia, Decubitus ulcer of sacral area Discharge Plan Patient Disposition: 09 ADMITTED INPATIENT Condition: Stable Prescriptions: No Action isosorbide mononitrate 20 mg Tablet 30 mg PO BID Rx Instructions: give doses 7 hrs apart clopidogrel 75 mg Tablet 75 mg PO QDAY oxycodone-acetaminophen 5-325 mg Tablet 1 tab PO Q6H PRN pantoprazole 40 mg Tablet,Delayed Release (Dr/Ec) 40 mg PO BID levothyroxine [Synthroid] 150 mcg Tablet 150 mcg PO QDAY nitroglycerin 0.4 mg Tablet, Sublingual 0.4 mg SUBLINGUAL Q5-15M PRN Rx Instructions: do not exceed 3 doses per episode furosemide 20 mg Tablet 20 mg PO QDAY finasteride 5 mg Tablet 5 mg PO QDAY loratadine 10 mg Tablet 10 mg PO QDAY rosuvastatin 40 mg Tablet 40 mg PO HS ranolazine 500 mg Tablet Extended Release 12 Hr 500 mg PO BID PRN (Reason: Chest Pain) lubiprostone 24 mcg Capsule 24 mcg PO BID potassium chloride 20 mEq Tablet Extended Release 10 meq PO QDAY Health Concerns: Post Hospitalization: new medications and changes needed to prevent readmission or further decline. Pt educated and given instructions on all concerns. Plan of Treatment: Continue with present treatment and follow up plan. Pt is to keep follow up appointment as instructed and take medications as ordered. Orders to Discharge Patient Discharge Orders: Transfer (Routine); Ordered 11/05/24 Ordered By: Bienvenido Deras Follow ups/Referrals Follow ups/Referrals: [facility],None [Primary Care Provider] - 3 days Instructions Stand Alone Forms: Find Help Web Site, Post Hospital Follow Up Care
[2024-11-05 16:32] VITALS: BMI 15.0
[2024-11-05 17:17] LABS: LYMPHOCYTES # (AUTO) 0.5 X10^3/uL (1.3-2.9)
[2024-11-05 17:21] LABS: BLOOD UREA NITROGEN 30 mg/dL (7-18); CALCIUM 7.7 mg/dL (8.5-10.1); CARBON DIOXIDE 40.7 mmol/L (21-32); CHLORIDE 99 mmol/L (98-107); COR NA(FOR HYPERGLY) 140 mmol/L (136-145); CREATININE 0.78 mg/dL (0.70-1.30); GLUCOSE 122 mg/dL (65-99); SODIUM 139 mmol/L (136-145); eGFR NON BLACK RACES > 60 (>60)
[2024-11-05 17:23] LABS: BASOPHILS % (AUTO) 0.1 % (0.2-1.0); HEMATOCRIT 51.4 % (42.0-54.0); HEMOGLOBIN 18.4 g/dL (13.5-18.0); LYMPHOCYTES % (AUTO) 7.6 % (21.0-51.0); MEAN CORPUSCULAR HGB CONC 35.8 g/dL (33.0-35.0); MEAN CORPUSCULAR VOLUME 100.4 fL (80.0-100.0); MEAN PLATELET VOLUME 8.1 fL (7.4-11.0); MONOCYTES # (AUTO) 0.5 x10^3/uL (0.3-0.8); MONOCYTES % (AUTO) 6.9 % (0.0-13.0); NEUTROPHILS # (AUTO) 5.7 x10^3/uL (2.2-4.8); NEUTROPHILS % (AUTO) 85.4 % (42.0-75.0); PLATELET COUNT 110 X10^3/uL (150.0-450.0); RED BLOOD COUNT 5.12 X10^6/uL (4.7-6.0); RED CELL DISTRIBUTION WIDTH 15.3 % (11.6-16.5); WHITE BLOOD COUNT 6.7 X10^3/uL (3.6-10.0)
[2024-11-05] MEDS ORDERED: CONSULT PHARMACY - POTASSIUM & MAGNESIUM XX SCH (21:35)
[2024-11-05] MEDS: ZOSYN VIAL 3.375 GRAMS 3.375 G in NS 100 ML IV 100 ML IV SCH (22:26)
[2024-11-05] MEDS: KLOR-CON PO SCH (22:26)
[2024-11-05] MEDS: NS 250 ML IV 25 ML IV PRN (22:26)
[2024-11-05] MEDS: NS 1,000 ML IV 1,000 ML IV SCH (22:26)
[2024-11-05] MEDS: NICOTINE PATCH TD SCH (22:33)
[2024-11-05] MEDS: PERCOCET TAB 5/325 MG PO PRN (22:37)
[2024-11-06 06:13] LABS: BASOPHILS % (AUTO) 0.3 % (0.2-1.0); HEMATOCRIT 48.1 % (42.0-54.0); LYMPHOCYTES # (AUTO) 0.4 X10^3/uL (1.3-2.9); LYMPHOCYTES % (AUTO) 4.3 % (21.0-51.0); MEAN CORPUSCULAR HEMOGLOBIN 35.4 pg (27.0-34.0); MEAN CORPUSCULAR HGB CONC 35.3 g/dL (33.0-35.0); MEAN CORPUSCULAR VOLUME 100.2 fL (80.0-100.0); MEAN PLATELET VOLUME 8.1 fL (7.4-11.0); MONOCYTES # (AUTO) 0.6 x10^3/uL (0.3-0.8); MONOCYTES % (AUTO) 6.8 % (0.0-13.0); NEUTROPHILS # (AUTO) 7.7 x10^3/uL (2.2-4.8); NEUTROPHILS % (AUTO) 88.6 % (42.0-75.0); PLATELET COUNT 93 X10^3/uL (150.0-450.0); RED CELL DISTRIBUTION WIDTH 15.6 % (11.6-16.5); WHITE BLOOD COUNT 8.7 X10^3/uL (3.6-10.0)
[2024-11-06 06:24] LABS: ALANINE AMINOTRANSFERASE 67 Units/L (12-78); ALBUMIN 1.8 g/dL (3.4-5.0); ALKALINE PHOSPHATASE 140 Units/L (46-116); ASPARTATE AMINO TRANSFERASE 108 Units/L (15-37); BLOOD UREA NITROGEN 30 mg/dL (7-18); CALCIUM 7.7 mg/dL (8.5-10.1); CARBON DIOXIDE 37.7 mmol/L (21-32); CHLORIDE 99 mmol/L (98-107); COR CA(FOR HYPOALB) 9.5 mg/dL (8.5-10.1); COR NA(FOR HYPERGLY) 140 mmol/L (136-145); CREATININE 0.73 mg/dL (0.70-1.30); GLUCOSE 123 mg/dL (65-99); POTASSIUM 3.4 mmol/L (3.5-5.1); SODIUM 139 mmol/L (136-145); TOTAL PROTEIN 5.7 g/dL (6.4-8.2); eGFR NON BLACK RACES > 60 (>60)
[2024-11-06] MEDS ORDERED: RANEXA PO PRN (08:07)
[2024-11-06] MEDS: LASIX PO SCH (08:30)
[2024-11-06] MEDS: KLOR-CON 10 MEQ TAB PO SCH (08:30)
[2024-11-06] MEDS: PROSCAR PO SCH (08:30)
[2024-11-06] MEDS: SYNTHROID 150 mcg TAB PO SCH (08:30)
[2024-11-06] MEDS: PLAVIX PO SCH (08:30)
[2024-11-06] MEDS: PROTONIX TAB 40 MG PO SCH (08:31)
--- NOTE | 2024-11-06 09:14 | DR.H&P ---
H&P History & Physical for Day of: H&P Date: 11/06/24 Chief Complaint Chief Complaint: adult failure to thrive copd exacerbation, dehydration sacral ulcer History of Present Illness History of Present Illness: Patient is a 74-year-old male with past medical history of hypertension, CAD, COPD, presenting with adult failure to thrive, dehydration, COPD exacerbation and sacral decubitus ulcer. He was brought into ER because patient's family stated that he was having difficulty taking care of himself at home since he has had a history of 2 CVAs with right hemiplegia and a sacral decubitus ulcer. He has not been using his oxygen at home. He denies any fever. He does have difficulty with his ADLs that is at his baseline. Labs/imaging:WBC 8.7, hemoglobin 17, platelets 93, sodium 139, potassium 3.4, creatinine 0.73, glucose 123, blood culture pending. Wound culture pending. Will start patient on IV fluids normal saline at 75 mL/h, IV antibiotics Zosyn, will consult general surgery for wound care. Will need to discuss with counseling case manager and family about possible placement. Restart home medications. Otherwise continue with current treatment plan. Continue closely monitor and follow-up labs. Past Medical History Past Medical History: Coronary Artery Disease and Hypertension Past Surgical History Surgical History: CABG/Valve Surgery and Tonsillectomy Family History Family Medical History: Diabetes Mellitus, Cancer, [place] and Hypertension Social History Does patient currently use any type of tobacco product: Yes Have you used tobacco products in the last 12 months: Yes Type of Tobacco Use: Cigarettes Does any household member use tobacco: Yes Alcohol Use: None Drug Use: None Medications Home Medications: Home Medications Medication Instructions Recorded Confirmed Type clopidogrel 75 mg tablet 75 mg PO QDAY 10/26/24 11/06/24 History finasteride 5 mg tablet 5 mg PO QDAY 10/26/24 11/06/24 History furosemide 20 mg tablet 20 mg PO QDAY 10/26/24 11/06/24 History isosorbide mononitrate 20 mg tablet 30 mg PO BID 10/26/24 11/06/24 History levothyroxine 150 mcg tablet 150 mcg PO QDAY 10/26/24 11/06/24 History (Synthroid) loratadine 10 mg tablet 10 mg PO QDAY 10/26/24 11/06/24 History lubiprostone 24 mcg capsule 24 mcg PO BID 10/26/24 11/06/24 History nitroglycerin 0.4 mg sublingual 0.4 mg sublingual Q5-15M PRN 10/26/24 11/06/24 History tablet oxycodone-acetaminophen 5 mg-325 1 tab PO Q6H PRN 10/26/24 11/06/24 History mg tablet pantoprazole 40 mg tablet,delayed 40 mg PO BID 10/26/24 11/06/24 History release potassium chloride 20 mEq 10 meq PO QDAY 10/26/24 11/06/24 History tablet,extended release ranolazine 500 mg tablet,extended 500 mg PO BID PRN Chest Pain 10/26/24 11/06/24 History release,12 hr rosuvastatin 40 mg tablet 40 mg PO HS 10/26/24 11/06/24 History Allergies Allergies Allergy/AdvReac Type Severity Reaction Status Date / Time No Known Drug Allergies Allergy Verified 01/22/19 21:48 Labs 11/06/24 05:40 11/06/24 05:40 Labs: 11/05/24 17:01 Blood Blood Culture Gram Stain - Final 11/05/24 16:51 Blood Blood Culture Gram Stain - Final Laboratory WBC 8.7 X10^3/uL (3.6-10.0) 11/06/24 05:40 RBC 4.80 X10^6/uL (4.7-6.0) 11/06/24 05:40 Hgb 17.0 g/dL (13.5-18.0) 11/06/24 05:40 Hct 48.1 % (42.0-54.0) 11/06/24 05:40 MCV 100.2 fL (80.0-100.0) H 11/06/24 05:40 MCH 35.4 pg (27.0-34.0) H 11/06/24 05:40 MCHC 35.3 g/dL (33.0-35.0) H 11/06/24 05:40 RDW 15.6 % (11.6-16.5) 11/06/24 05:40 Plt Count 93 X10^3/uL (150.0-450.0) L 11/06/24 05:40 MPV 8.1 fL (7.4-11.0) 11/06/24 05:40 Neut % (Auto) 88.6 % (42.0-75.0) H 11/06/24 05:40 Lymph % (Auto) 4.3 % (21.0-51.0) L 11/06/24 05:40 [place] % (Auto) 6.8 % (0.0-13.0) 11/06/24 05:40 Eos % (Auto) 0.0 % (0.9-2.9) L 11/06/24 05:40 Baso % (Auto) 0.3 % (0.2-1.0) 11/06/24 05:40 Neut # (Auto) 7.7 x10^3/uL (2.2-4.8) H 11/06/24 05:40 Lymph # (Auto) 0.4 X10^3/uL (1.3-2.9) L 11/06/24 05:40 [place] # (Auto) 0.6 x10^3/uL (0.3-0.8) 11/06/24 05:40 Eos # (Auto) 0.0 x10^3/uL (0.0-0.2) 11/06/24 05:40 Baso # (Auto) 0.0 X10^3/uL (0.0-0.1) 11/06/24 05:40 Absolute Nucleated RBC 0.2 /100WBC 11/06/24 05:40 Sodium 139 mmol/L (136-145) 11/06/24 05:40 Corrected Sodium 140 mmol/L (136-145) 11/06/24 05:40 Potassium 3.4 mmol/L (3.5-5.1) L 11/06/24 05:40 Chloride 99 mmol/L (98-107) 11/06/24 05:40 Carbon Dioxide 37.7 mmol/L (21-32) H 11/06/24 05:40 BUN 30 mg/dL (7-18) H 11/06/24 05:40 Creatinine 0.73 mg/dL (0.70-1.30) 11/06/24 05:40 Est GFR (MDRD) Af Amer > 60 (>60) 11/06/24 05:40 Est GFR (MDRD) Non-Af > 60 (>60) 11/06/24 05:40 Glucose 123 mg/dL (65-99) H 11/06/24 05:40 Calcium 7.7 mg/dL (8.5-10.1) L 11/06/24 05:40 Corrected Calcium 9.5 mg/dL (8.5-10.1) 11/06/24 05:40 Magnesium 2.1 mg/dL (2.0-2.9) 11/05/24 16:51 Total Bilirubin 0.90 mg/dL (0.2-1.0) 11/06/24 05:40 AST 108 Units/L (15-37) H 11/06/24 05:40 ALT 67 Units/L (12-78) 11/06/24 05:40 Alkaline Phosphatase 140 Units/L (46-116) H 11/06/24 05:40 Total Protein 5.7 g/dL (6.4-8.2) L 11/06/24 05:40 Albumin 1.8 g/dL (3.4-5.0) L 11/06/24 05:40 Globulin 3.9 g/dL (2.5-4.5) 11/06/24 05:40 Albumin/Globulin Ratio 0.5 Ratio (1.1-2.1) L 11/06/24 05:40 Review of Systems Constitutional: Weakness Eyes: Other (left eye blind) ENT: No Symptoms Reported Respiratory: No Symptoms Reported Cardiovascular: No Symptoms Reported Gastrointestinal: No Symptoms Reported Genitourinary: No Symptoms Reported Musculoskeletal: No Symptoms Reported Skin: No Symptoms Reported Neurological: No Symptoms Reported Physical Exam Vital Signs: Vital Signs Temperature 98.1 F Temperature 97.6 F Pulse Rate [Right Radial] 78 Pulse Rate [Right Radial] 79 Respiratory Rate 18 Respiratory Rate 18 Respiratory Rate 17 Blood Pressure [Left Arm] 160/98 Blood Pressure [Left Arm] 153/97 O2 Sat by Pulse Oximetry 95 O2 Sat by Pulse Oximetry 96 Oriented: Normal Eyes: Normal Ear: Normal Nose: Normal Throat: Normal Respiratory: Clear Throughout Cardiovascular: Normal : Normal Auscultation: Bowel Sounds: Normal Palpation: Normal Tenderness: Normal Skin: Decreased Turgur and Wound (sacral) Musculoskeletal: Motor Deficit (right hemiplegia) Psychiatric: Normal Mood Description: Calm and Appropriate Affect: Normal Speech Pattern: Clear and Appropriate Assessment/Plan (1) Adult failure to thrive: Status: Acute (2) Decubitus ulcer of sacral area: Qualifiers: Pressure injury stage: unspecified pressure injury stage Qualified Code(s): L89.159 - Pressure ulcer of sacral region, unspecified stage Status: Acute (3) COPD (chronic obstructive pulmonary disease): Qualifiers: COPD type: unspecified COPD Qualified Code(s): J44.9 - Chronic obstructive pulmonary disease, unspecified Status: Acute (4) Dehydration, moderate: Status: Acute (5) Hypokalemia: Status: Acute Review H&P Reviewed: Yes Patient was examined?: Yes
[2024-11-06] MEDS: MONOKET or IMDUR PO SCH (10:11)
[2024-11-06] MEDS: LUBIPROSTONE 24 MCG PO SCH (10:18)
[2024-11-06 14:01] LABS: BILIRUBIN,URINE NEGATIVE (NEGATIVE); BLOOD/HEMOGLOBIN,URINE 4+ (NEGATIVE); GLUCOSE, URINE 3+ (NEGATIVE); KETONES,URINE NEGATIVE (NEGATIVE); LEUKOCYTE ESTERASE ,URINE NEGATIVE (NEGATIVE); NITRITES,URINE NEGATIVE (NEGATIVE); PROTEIN,URINE 2+ (NEGATIVE); UROBILINOGEN,URINE NORMAL (NORMAL)
[2024-11-06 14:10] LABS: APPEARANCE,URINE CLEAR (CLEAR); BACTERIA,URINE NEGATIVE /HPF (NEGATIVE); COLOR,URINE YELLOW (YELLOW); SQUAMOUS EPITHELIAL CELL,UR RARE /HPF (NEGATIVE)
[2024-11-06 14:11] LABS: HYALINE CASTS, URINE RARE /LPF (NEGATIVE)
[2024-11-06] MEDS: CRESTOR TAB 10 MG PO SCH (21:08)
[2024-11-07 05:52] LABS: BASOPHILS % (AUTO) 0.2 % (0.2-1.0); EOSINOPHILS % (AUTO) 0.2 % (0.9-2.9); HEMATOCRIT 43.4 % (42.0-54.0); HEMOGLOBIN 15.4 g/dL (13.5-18.0); LYMPHOCYTES # (AUTO) 0.4 X10^3/uL (1.3-2.9); LYMPHOCYTES % (AUTO) 5.1 % (21.0-51.0); MEAN CORPUSCULAR HEMOGLOBIN 35.4 pg (27.0-34.0); MEAN CORPUSCULAR HGB CONC 35.5 g/dL (33.0-35.0); MEAN CORPUSCULAR VOLUME 99.6 fL (80.0-100.0); MEAN PLATELET VOLUME 7.9 fL (7.4-11.0); MONOCYTES # (AUTO) 0.5 x10^3/uL (0.3-0.8); MONOCYTES % (AUTO) 6.3 % (0.0-13.0); NEUTROPHILS # (AUTO) 6.9 x10^3/uL (2.2-4.8); NEUTROPHILS % (AUTO) 88.2 % (42.0-75.0); PLATELET COUNT 90 X10^3/uL (150.0-450.0); RED BLOOD COUNT 4.36 X10^6/uL (4.7-6.0); RED CELL DISTRIBUTION WIDTH 15.2 % (11.6-16.5); WHITE BLOOD COUNT 7.8 X10^3/uL (3.6-10.0)
[2024-11-07 06:04] LABS: ALANINE AMINOTRANSFERASE 139 Units/L (12-78); ALBUMIN 1.7 g/dL (3.4-5.0); ALKALINE PHOSPHATASE 296 Units/L (46-116); ASPARTATE AMINO TRANSFERASE 195 Units/L (15-37); BLOOD UREA NITROGEN 18 mg/dL (7-18); CALCIUM 7.1 mg/dL (8.5-10.1); CARBON DIOXIDE 35.2 mmol/L (21-32); CHLORIDE 100 mmol/L (98-107); COR CA(FOR HYPOALB) 8.9 mg/dL (8.5-10.1); COR NA(FOR HYPERGLY) 138 mmol/L (136-145); CREATININE 0.63 mg/dL (0.70-1.30); GLUCOSE 149 mg/dL (65-99); MAGNESIUM 1.8 mg/dL (2.0-2.9); SODIUM 137 mmol/L (136-145); TOTAL PROTEIN 5.5 g/dL (6.4-8.2); eGFR NON BLACK RACES > 60 (>60)
[2024-11-07 06:09] LABS: POTASSIUM 2.8 mmol/L (3.5-5.1)
[2024-11-07] MEDS ORDERED: CONSULT PHARMACY - POTASSIUM & MAGNESIUM XX SCH (07:00)
[2024-11-07] MEDS: MAG-OX TAB PO SCH (08:36)
[2024-11-07] MEDS: K-DUR TAB 20 MEQ PO SCH (10:56)
[2024-11-07] MEDS: APLISOL ID ONE (15:58)
[2024-11-07] MEDS: COLACE CAP 100 MG PO SCH (21:16)
[2024-11-08 05:36] LABS: LYMPHOCYTES # (AUTO) 0.3 X10^3/uL (1.3-2.9); MONOCYTES # (AUTO) 0.3 x10^3/uL (0.3-0.8)
[2024-11-08 05:41] LABS: ALANINE AMINOTRANSFERASE 236 Units/L (12-78); ALBUMIN 1.7 g/dL (3.4-5.0); ALKALINE PHOSPHATASE 393 Units/L (46-116); ASPARTATE AMINO TRANSFERASE 349 Units/L (15-37); BLOOD UREA NITROGEN 11 mg/dL (7-18); CALCIUM 7.1 mg/dL (8.5-10.1); CARBON DIOXIDE 35.2 mmol/L (21-32); CHLORIDE 98 mmol/L (98-107); COR CA(FOR HYPOALB) 8.9 mg/dL (8.5-10.1); COR NA(FOR HYPERGLY) 138 mmol/L (136-145); GLUCOSE 115 mg/dL (65-99); MAGNESIUM 1.7 mg/dL (2.0-2.9); SODIUM 138 mmol/L (136-145); TOTAL PROTEIN 5.7 g/dL (6.4-8.2); eGFR NON BLACK RACES > 60 (>60)
[2024-11-08 05:48] LABS: POTASSIUM 2.7 mmol/L (3.5-5.1)
[2024-11-08 05:51] LABS: BASOPHILS % (AUTO) 0.1 % (0.2-1.0); EOSINOPHILS % (AUTO) 0.1 % (0.9-2.9); HEMATOCRIT 46.2 % (42.0-54.0); HEMOGLOBIN 16.1 g/dL (13.5-18.0); LYMPHOCYTES % (AUTO) 4.4 % (21.0-51.0); MEAN CORPUSCULAR HEMOGLOBIN 34.7 pg (27.0-34.0); MEAN CORPUSCULAR HGB CONC 34.8 g/dL (33.0-35.0); MEAN CORPUSCULAR VOLUME 99.8 fL (80.0-100.0); MEAN PLATELET VOLUME 7.7 fL (7.4-11.0); MONOCYTES % (AUTO) 4.9 % (0.0-13.0); NEUTROPHILS # (AUTO) 6.1 x10^3/uL (2.2-4.8); NEUTROPHILS % (AUTO) 90.5 % (42.0-75.0); PLATELET COUNT 76 X10^3/uL (150.0-450.0); RED BLOOD COUNT 4.63 X10^6/uL (4.7-6.0); RED CELL DISTRIBUTION WIDTH 15.1 % (11.6-16.5); WHITE BLOOD COUNT 6.8 X10^3/uL (3.6-10.0)
[2024-11-08 06:05] LABS: PLATELET MORPHOLOGY COMMENT NORMAL (NORMAL)
[2024-11-08] MEDS ORDERED: CONSULT PHARMACY - POTASSIUM & MAGNESIUM XX SCH (07:00)
[2024-11-08] MEDS: K-DUR TAB 20 MEQ PO NR (08:41)
[2024-11-08] MEDS: MAG-OX TAB PO SCH (08:42)
[2024-11-08] MEDS: NS + KCL 20 MEQ/L 1,000 ML IV SCH (08:43)
--- NOTE | 2024-11-08 12:24 | CT ---
EXAM:CT abdomen pelvis with contrastHISTORY:Elevated liver enzymesTECHNIQUE:Axial postcontrast images with coronal and sagittal reformats. Dose reduction procedures were used with mA/kv adjusted for body size.COMPARISON:NoneFINDINGS:Bilateral small pleural effusions are present. There are adjacent atelectatic changes in the lung bases [id number]. The liver, spleen, adrenal glands, and pancreas are within normal limits. No opaque stones are present within the gallbladder. Kidneys are unobstructed and without stones or masses. No ureteral calculi are identified. Appendix is not identified with absolute certainty. There are no secondary signs of appendicitis present. Diffuse severe calcific atherosclerotic changes present in the nondilated abdominal aorta and proximal common iliac arteries. No enlarged intraperitoneal or retroperitoneal lymphadenopathy is identified. There are no definite findings suggestive of enteritis, colitis, or diverticulitis. No pelvic masses or pelvic lymphadenopathy is identified. There is some ascites fluid within the pelvis. No definite bladder abnormality identified. Prostate gland is mildly enlarged. No lytic or blastic skeletal lesions identified.IMPRESSION:No significant hepatic abnormality identifiedSmall amount of ascites fluid within the pelvis.No acute inflammatory process identified within the abdomen or pelvisSmall bilateral pleural effusions with some adjacent basilar atelectasis [id number] IS AN ELECTRONICALLY VERIFIED FINAL REPORT11/08/2024 12:20 PM - Electronically signed by Jose Ram MD
[2024-11-08] MEDS: APLISOL ID ONE (14:02)
[2024-11-08] MEDS: OMNIPAQUE 350 mg/mL 100 mL BTL 100 ML ONE (14:03)
[2024-11-08] MEDS: SANTYL EXT SCH (14:33)
--- NOTE | 2024-11-09 00:57 | DR.CONSULT ---
CONSULT Consultation for Day of: Date: 11/07/24 Chief Complaint Chief Complaint: left buttock decubitus ulcer. Allergies Allergies Allergy/AdvReac Type Severity Reaction Status Date / Time No Known Drug Allergies Allergy Verified 01/22/19 21:48 History of Present Illness History of Present Illness: 74 yo male with left hemispheric CVA and right hemiparesis and aphasia who has failure to thrive and presents with left buttock full thickness pressure wound. History of hypertension, COPD,CAD . Past Medical History Past Medical History: Coronary Artery Disease and Hypertension Past Surgical History Surgical History: CABG/Valve Surgery and Tonsillectomy Family History Family Medical History: Diabetes Mellitus, Cancer, [place] and Hypertension Social History Does patient currently use any type of tobacco product: Yes Have you used tobacco products in the last 12 months: Yes Type of Tobacco Use: Cigarettes Does any household member use tobacco: Yes Alcohol Use: None Drug Use: None Medications Home Medications: No Known Drug Allergies Allergy (Verified 01/22/19 21:48) Review of Systems Constitutional: See HPI Eyes: Other (left eye blind ) ENT: No Symptoms Reported Respiratory: See HPI and Shortness of Breath Cardiovascular: See HPI and Other (right hemiparesis ) Gastrointestinal: No Symptoms Reported Genitourinary: No Symptoms Reported Musculoskeletal: See HPI Skin: See HPI Neurological: See HPI Physical Exam Vital Signs: Vital Signs Temperature 97.8 F Temperature 98.0 F Pulse Rate [Right Radial] 77 Pulse Rate [Right Radial] 83 Respiratory Rate 17 Respiratory Rate 18 Respiratory Rate 18 Respiratory Rate 17 Blood Pressure [Right Arm] 133/88 Blood Pressure [Left Arm] 130/21 O2 Sat by Pulse Oximetry 95 O2 Sat by Pulse Oximetry 99 Oriented: Unable to test Eyes: Normal Ear: Normal Nose: Normal Throat: Normal Respiratory: Rhonchi Throughout Cardiovascular: Normal : Normal Auscultation: Bowel Sounds: Normal Palpation: Normal Tenderness: Normal Skin: Wound (10 cm area of full thickness injury with no drainage or crepitance ) Musculoskeletal: Normal Psychiatric: Normal Mood Description: Calm Affect: Normal Speech Pattern: Slurred Plan (1) Adult failure to thrive: Status: Acute (2) Decubitus ulcer of sacral area: Status: Acute Qualifiers: Pressure injury stage: unspecified pressure injury stage Qualified Code(s): L89.159 - Pressure ulcer of sacral region, unspecified stage Plan: Continue IV antibiotics and will begin Santyl to this wound . May require surgical debridement . (3) COPD (chronic obstructive pulmonary disease): Status: Acute Qualifiers: COPD type: unspecified COPD Qualified Code(s): J44.9 - Chronic obstructive pulmonary disease, unspecified (4) Dehydration, moderate: Status: Acute (5) Hypokalemia: Status: Acute
--- NOTE | 2024-11-09 01:11 | NOTE.SOAP ---
Soap Note Note for Day of Date of Exam: 11/08/24 Subjective Data Subjective Data: No change Objective Data Temperature: 97.8 F Pulse Rate: 77 Respiratory Rate: 17 Blood Pressure: 133/88 O2 Sat by Pulse Oximetry: 95 Objective Data: No evidence clinically of sepsis , WBC=6.8 Top layer of skin starting to come off and no evidene of abscess. Assessment Assessment: left buttock decubitus ulcer Plan Plan: Continue IV antibiotics and Santyl
[2024-11-09 05:25] LABS: BASOPHILS % (AUTO) 0.2 % (0.2-1.0); EOSINOPHILS % (AUTO) 0.1 % (0.9-2.9); LYMPHOCYTES # (AUTO) 0.4 X10^3/uL (1.3-2.9); MONOCYTES # (AUTO) 0.4 x10^3/uL (0.3-0.8); WHITE BLOOD COUNT 7.2 X10^3/uL (3.6-10.0)
[2024-11-09 05:32] LABS: HEMATOCRIT 41.5 % (42.0-54.0); HEMOGLOBIN 14.7 g/dL (13.5-18.0); LYMPHOCYTES % (AUTO) 6.1 % (21.0-51.0); MEAN CORPUSCULAR HEMOGLOBIN 34.8 pg (27.0-34.0); MEAN CORPUSCULAR HGB CONC 35.4 g/dL (33.0-35.0); MEAN CORPUSCULAR VOLUME 98.4 fL (80.0-100.0); MEAN PLATELET VOLUME 8.1 fL (7.4-11.0); MONOCYTES % (AUTO) 5.4 % (0.0-13.0); NEUTROPHILS # (AUTO) 6.3 x10^3/uL (2.2-4.8); NEUTROPHILS % (AUTO) 88.2 % (42.0-75.0); PLATELET COUNT 73 X10^3/uL (150.0-450.0); RED BLOOD COUNT 4.22 X10^6/uL (4.7-6.0); RED CELL DISTRIBUTION WIDTH 14.8 % (11.6-16.5)
[2024-11-09 05:38] LABS: ALANINE AMINOTRANSFERASE 189 Units/L (12-78); ALBUMIN 1.6 g/dL (3.4-5.0); ALKALINE PHOSPHATASE 313 Units/L (46-116); ASPARTATE AMINO TRANSFERASE 196 Units/L (15-37); BLOOD UREA NITROGEN 8 mg/dL (7-18); CALCIUM 6.9 mg/dL (8.5-10.1); CARBON DIOXIDE 34.7 mmol/L (21-32); CHLORIDE 100 mmol/L (98-107); COR CA(FOR HYPOALB) 8.8 mg/dL (8.5-10.1); COR NA(FOR HYPERGLY) 139 mmol/L (136-145); CREATININE 0.41 mg/dL (0.70-1.30); GLUCOSE 112 mg/dL (65-99); MAGNESIUM 1.7 mg/dL (2.0-2.9); SODIUM 139 mmol/L (136-145); TOTAL PROTEIN 5.3 g/dL (6.4-8.2); eGFR NON BLACK RACES > 60 (>60)
[2024-11-09 05:43] LABS: POTASSIUM 2.7 mmol/L (3.5-5.1)
[2024-11-09 05:47] LABS: BAND NEUTROPHILS % 1 % (0-10); PLATELET MORPHOLOGY COMMENT NORMAL (NORMAL)
[2024-11-09] MEDS ORDERED: CONSULT PHARMACY - POTASSIUM & MAGNESIUM XX SCH (06:00)
--- NOTE | 2024-11-09 07:16 | PCM.PROG ---
Progress Note Progress Note for Day of Date of Exam: 11/07/24 Subjective Subjective: Patient is a 74-year-old male with past medical history of hypertension, CAD, COPD, admitted for adult failure to thrive, dehydration, COPD exacerbation and sacral decubitus ulcer. This morning he is resting comfortably in bed. No acute events overnight. Labs/imaging: WBC 7.8, hemoglobin 15.4, platelets 90, sodium 137, potassium 2.8, creatinine 0.63, glucose 149, blood culture pending. Wound culture pending. Pt is currently on IV fluids normal saline at 75 mL/h, IV antibiotics Zosyn, will consult general surgery for wound care on sacral ulcer. manager infusion and family about possible rehab placement. Home medications have been resumed. Otherwise continue with current treatment plan. Continue closely monitor and follow-up labs. Past Medical Family Social History Allergies: Allergies No Known Drug Allergies Allergy (Verified 01/22/19 21:48) Review of Systems ROS changes noted: see HPI Vital Signs and I&O's Vital Signs: Vital Signs Temperature 98.5 F Temperature 98.1 F Pulse Rate [Right Radial] 97 Pulse Rate [Right Radial] 87 Respiratory Rate 21 Respiratory Rate 19 Respiratory Rate 20 Blood Pressure [Left Arm] 176/98 Blood Pressure [Left Arm] 150/90 Blood Pressure [Left Arm] 175/77 O2 Sat by Pulse Oximetry 96 O2 Sat by Pulse Oximetry 98 Intake and Output: Intake & Output 11/05/24 11/06/24 11/07/24 11/08/24 23:59 23:59 23:59 23:59 Intake Total 220 / 220 2523 / 2523 2755 / 2755 560 / 560 Output Total 4 / 4 2 / 2 2 / 2 Balance 220 / 220 2519 / 2519 2753 / 2753 558 / 558 Physical Exam Oriented: Normal Eyes: Normal Ear: Normal Nose: Normal Throat: Normal Respiratory: Diminished Cardiovascular: Normal : Normal Auscultation: Bowel Sounds: Normal Tenderness: Normal Skin: Decreased Turgur and Wound (sacral) Musculoskeletal: Motor Deficit (right hemiplegia) Psychiatric: Normal Mood Description: Calm and Appropriate Affect: Normal Speech Pattern: Unclear Laboratory and Diagnostics 11/09/24 04:40 11/09/24 04:40 Labs: 11/06/24 13:50 Buttock Wound Culture - Preliminary Proteus Vulgaris 11/05/24 17:01 Blood Blood Culture Gram Stain - Final 11/05/24 17:01 Blood Blood Culture - Final Proteus Vulgaris 11/05/24 16:51 Blood Blood Culture Gram Stain - Final 11/05/24 16:51 Blood Blood Culture - Final Proteus Vulgaris Laboratory WBC 6.8 X10^3/uL (3.6-10.0) 11/08/24 05:10 RBC 4.63 X10^6/uL (4.7-6.0) L 11/08/24 05:10 Hgb 16.1 g/dL (13.5-18.0) 11/08/24 05:10 Hct 46.2 % (42.0-54.0) 11/08/24 05:10 MCV 99.8 fL (80.0-100.0) 11/08/24 05:10 MCH 34.7 pg (27.0-34.0) H 11/08/24 05:10 MCHC 34.8 g/dL (33.0-35.0) 11/08/24 05:10 RDW 15.1 % (11.6-16.5) 11/08/24 05:10 Plt Count 76 X10^3/uL (150.0-450.0) L 11/08/24 05:10 Plt Count Comment Decreased (ADEQUATE) 11/08/24 05:10 MPV 7.7 fL (7.4-11.0) 11/08/24 05:10 Neut % (Auto) 90.5 % (42.0-75.0) H 11/08/24 05:10 Lymph % (Auto) 4.4 % (21.0-51.0) L 11/08/24 05:10 [place] % (Auto) 4.9 % (0.0-13.0) 11/08/24 05:10 Eos % (Auto) 0.1 % (0.9-2.9) L 11/08/24 05:10 Baso % (Auto) 0.1 % (0.2-1.0) L 11/08/24 05:10 Neut # (Auto) 6.1 x10^3/uL (2.2-4.8) H 11/08/24 05:10 Lymph # (Auto) 0.3 X10^3/uL (1.3-2.9) L 11/08/24 05:10 [place] # (Auto) 0.3 x10^3/uL (0.3-0.8) 11/08/24 05:10 Eos # (Auto) 0.0 x10^3/uL (0.0-0.2) 11/08/24 05:10 Baso # (Auto) 0.0 X10^3/uL (0.0-0.1) 11/08/24 05:10 Absolute Nucleated RBC 0.0 /100WBC 11/08/24 05:10 Total Counted 100 11/08/24 05:10 Neutrophils % (Manual) 92 % (39-76) H 11/08/24 05:10 Lymphocytes % (Manual) 6 % (13-43) L 11/08/24 05:10 Monocytes % (Manual) 2 % (4-9) L 11/08/24 05:10 Plt Morphology Comment Normal (NORMAL) 11/08/24 05:10 RBC Morphology Normal (NORMAL) 11/08/24 05:10 Sodium 138 mmol/L (136-145) 11/08/24 05:10 Corrected Sodium 138 mmol/L (136-145) 11/08/24 05:10 Potassium 2.7 mmol/L (3.5-5.1) L* 11/08/24 05:10 Chloride 98 mmol/L (98-107) 11/08/24 05:10 Carbon Dioxide 35.2 mmol/L (21-32) H 11/08/24 05:10 BUN 11 mg/dL (7-18) 11/08/24 05:10 Creatinine 0.50 mg/dL (0.70-1.30) L 11/08/24 05:10 Est GFR (MDRD) Af Amer > 60 (>60) 11/08/24 05:10 Est GFR (MDRD) Non-Af > 60 (>60) 11/08/24 05:10 Glucose 115 mg/dL (65-99) H 11/08/24 05:10 Calcium 7.1 mg/dL (8.5-10.1) L 11/08/24 05:10 Corrected Calcium 8.9 mg/dL (8.5-10.1) 11/08/24 05:10 Magnesium 1.7 mg/dL (2.0-2.9) L 11/08/24 05:10 Total Bilirubin 1.00 mg/dL (0.2-1.0) 11/08/24 05:10 AST 349 Units/L (15-37) H 11/08/24 05:10 ALT 236 Units/L (12-78) H 11/08/24 05:10 Alkaline Phosphatase 393 Units/L (46-116) H 11/08/24 05:10 Total Protein 5.7 g/dL (6.4-8.2) L 11/08/24 05:10 Albumin 1.7 g/dL (3.4-5.0) L 11/08/24 05:10 Globulin 4.0 g/dL (2.5-4.5) 11/08/24 05:10 Albumin/Globulin Ratio 0.4 Ratio (1.1-2.1) L 11/08/24 05:10 Specimen Type Catherized urine 11/06/24 13:50 Urine Color Yellow (YELLOW) 11/06/24 13:50 Urine Appearance Clear (CLEAR) 11/06/24 13:50 Urine pH 6.0 (5.0 - 8.0) 11/06/24 13:50 Ur Specific [place] 1.015 (1.000-1.030) 11/06/24 13:50 Urine Protein 2+ (NEGATIVE) 11/06/24 13:50 Urine Glucose (UA) 3+ (NEGATIVE) 11/06/24 13:50 Urine Ketones Negative (NEGATIVE) 11/06/24 13:50 Urine Blood 4+ (NEGATIVE) 11/06/24 13:50 Urine Nitrite Negative (NEGATIVE) 11/06/24 13:50 Urine Bilirubin Negative (NEGATIVE) 11/06/24 13:50 Urine Urobilinogen Normal (NORMAL) 11/06/24 13:50 Ur Leukocyte Esterase Negative (NEGATIVE) 11/06/24 13:50 Urine RBC 3-5 /HPF (0-3) A 11/06/24 13:50 Urine WBC None seen /HPF (0-5) 11/06/24 13:50 Ur Squamous Epith Cells Rare /HPF (NEGATIVE) 11/06/24 13:50 Amorphous Sediment 1+ /HPF (NEGATIVE) 11/06/24 13:50 Urine Bacteria Negative /HPF (NEGATIVE) 11/06/24 13:50 Hyaline Casts Rare /LPF (NEGATIVE) 11/06/24 13:50 Urine Mucus Few /HPF (NEGATIVE) 11/06/24 13:50 Ur Culture Indicated? No/not indicated 11/06/24 13:50 Plan (1) Adult failure to thrive: Status: Acute (2) Decubitus ulcer of sacral area: Status: Acute Qualifiers: Pressure injury stage: unspecified pressure injury stage Qualified Code(s): L89.159 - Pressure ulcer of sacral region, unspecified stage (3) COPD (chronic obstructive pulmonary disease): Status: Acute Qualifiers: COPD type: unspecified COPD Qualified Code(s): J44.9 - Chronic obstructive pulmonary disease, unspecified (4) Dehydration, moderate: Status: Acute (5) Hypokalemia: Status: Acute
--- NOTE | 2024-11-09 07:23 | PCM.PROG ---
Progress Note Progress Note for Day of Date of Exam: 11/08/24 Subjective Subjective: Patient is a 74-year-old male with past medical history of hypertension, CAD, COPD, admitted for adult failure to thrive, bacteremia, dehydration, COPD exacerbation and sacral decubitus ulcer. He is sitting up in bed this morning. No acute events overnight. Labs/imaging: WBC 6.8, hemoglobin 16.1, platelets 76, sodium 138, potassium 2.7, creatinine 0.50, glucose 115, blood culture and wound culture positive for proteus vulgaris. Pt is currently on IV fluids normal saline at 75 mL/h, IV antibiotics Zosyn. General surgery has been consulted for wound care on sacral ulcer. 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 Home medications have been resumed. Otherwise continue with current treatment plan. Continue closely monitor and follow-up labs. Past Medical Family Social History Allergies: Allergies No Known Drug Allergies Allergy (Verified 01/22/19 21:48) Review of Systems ROS changes noted: see HPI Vital Signs and I&O's Vital Signs: Vital Signs Temperature 97.9 F Temperature 97.8 F Temperature 97.8 F Pulse Rate [Right Radial] 84 Pulse Rate [Right Radial] 77 Pulse Rate 77 Respiratory Rate 18 Respiratory Rate 17 Respiratory Rate 17 Blood Pressure [Right Arm] 140/91 Blood Pressure [Right Arm] 133/88 Blood Pressure 133/88 O2 Sat by Pulse Oximetry 99 O2 Sat by Pulse Oximetry 95 O2 Sat by Pulse Oximetry 95 Intake and Output: Intake & Output 11/06/24 11/07/24 11/08/24 11/09/24 23:59 23:59 23:59 23:59 Intake Total 2523 / 2523 2755 / 2755 2523 / 2523 550 / 550 Output Total 2124 / 2124 400 / 400 Balance 2519 / 2519 2753 / 2753 399 / 399 150 / 150 Physical Exam Oriented: Unable to test Eyes: Normal Ear: Normal Nose: Normal Throat: Normal Respiratory: Diminished Cardiovascular: Normal : Normal Auscultation: Bowel Sounds: Normal Tenderness: Normal Skin: Wound (10 cm area of full thickness injury with no drainage or crepitance ) Musculoskeletal: Normal Psychiatric: Normal Mood Description: Calm Affect: Normal Speech Pattern: Slurred Laboratory and Diagnostics 11/09/24 04:40 11/09/24 04:40 Labs: 11/06/24 13:50 Buttock Wound Culture - Preliminary Proteus Vulgaris 11/05/24 17:01 Blood Blood Culture Gram Stain - Final 11/05/24 17:01 Blood Blood Culture - Final Proteus Vulgaris 11/05/24 16:51 Blood Blood Culture Gram Stain - Final 11/05/24 16:51 Blood Blood Culture - Final Proteus Vulgaris Laboratory WBC 7.2 X10^3/uL (3.6-10.0) 11/09/24 04:40 RBC 4.22 X10^6/uL (4.7-6.0) L 11/09/24 04:40 Hgb 14.7 g/dL (13.5-18.0) 11/09/24 04:40 Hct 41.5 % (42.0-54.0) L 11/09/24 04:40 MCV 98.4 fL (80.0-100.0) 11/09/24 04:40 MCH 34.8 pg (27.0-34.0) H 11/09/24 04:40 MCHC 35.4 g/dL (33.0-35.0) H 11/09/24 04:40 RDW 14.8 % (11.6-16.5) 11/09/24 04:40 Plt Count 73 X10^3/uL (150.0-450.0) L 11/09/24 04:40 Plt Count Comment Decreased (ADEQUATE) 11/09/24 04:40 MPV 8.1 fL (7.4-11.0) 11/09/24 04:40 Neut % (Auto) 88.2 % (42.0-75.0) H 11/09/24 04:40 Lymph % (Auto) 6.1 % (21.0-51.0) L 11/09/24 04:40 [place] % (Auto) 5.4 % (0.0-13.0) 11/09/24 04:40 Eos % (Auto) 0.1 % (0.9-2.9) L 11/09/24 04:40 Baso % (Auto) 0.2 % (0.2-1.0) 11/09/24 04:40 Neut # (Auto) 6.3 x10^3/uL (2.2-4.8) H 11/09/24 04:40 Lymph # (Auto) 0.4 X10^3/uL (1.3-2.9) L 11/09/24 04:40 [place] # (Auto) 0.4 x10^3/uL (0.3-0.8) 11/09/24 04:40 Eos # (Auto) 0.0 x10^3/uL (0.0-0.2) 11/09/24 04:40 Baso # (Auto) 0.0 X10^3/uL (0.0-0.1) 11/09/24 04:40 Absolute Nucleated RBC 0.1 /100WBC 11/09/24 04:40 Total Counted 100 11/09/24 04:40 Neutrophils % (Manual) 87 % (39-76) H 11/09/24 04:40 Band Neutrophils % 1 % (0-10) 11/09/24 04:40 Lymphocytes % (Manual) 7 % (13-43) L 11/09/24 04:40 Monocytes % (Manual) 5 % (4-9) 11/09/24 04:40 Plt Morphology Comment Normal (NORMAL) 11/09/24 04:40 RBC Morphology Normal (NORMAL) 11/09/24 04:40 Sodium 139 mmol/L (136-145) 11/09/24 04:40 Corrected Sodium 139 mmol/L (136-145) 11/09/24 04:40 Potassium 2.7 mmol/L (3.5-5.1) L* 11/09/24 04:40 Chloride 100 mmol/L (98-107) 11/09/24 04:40 Carbon Dioxide 34.7 mmol/L (21-32) H 11/09/24 04:40 BUN 8 mg/dL (7-18) 11/09/24 04:40 Creatinine 0.41 mg/dL (0.70-1.30) L 11/09/24 04:40 Est GFR (MDRD) Af Amer > 60 (>60) 11/09/24 04:40 Est GFR (MDRD) Non-Af > 60 (>60) 11/09/24 04:40 Glucose 112 mg/dL (65-99) H 11/09/24 04:40 Calcium 6.9 mg/dL (8.5-10.1) L 11/09/24 04:40 Corrected Calcium 8.8 mg/dL (8.5-10.1) 11/09/24 04:40 Magnesium 1.7 mg/dL (2.0-2.9) L 11/09/24 04:40 Total Bilirubin 0.90 mg/dL (0.2-1.0) 11/09/24 04:40 AST 196 Units/L (15-37) H 11/09/24 04:40 ALT 189 Units/L (12-78) H 11/09/24 04:40 Alkaline Phosphatase 313 Units/L (46-116) H 11/09/24 04:40 Total Protein 5.3 g/dL (6.4-8.2) L 11/09/24 04:40 Albumin 1.6 g/dL (3.4-5.0) L 11/09/24 04:40 Globulin 3.7 g/dL (2.5-4.5) 11/09/24 04:40 Albumin/Globulin Ratio 0.4 Ratio (1.1-2.1) L 11/09/24 04:40 Specimen Type Catherized urine 11/06/24 13:50 Urine Color Yellow (YELLOW) 11/06/24 13:50 Urine Appearance Clear (CLEAR) 11/06/24 13:50 Urine pH 6.0 (5.0 - 8.0) 11/06/24 13:50 Ur Specific [place] 1.015 (1.000-1.030) 11/06/24 13:50 Urine Protein 2+ (NEGATIVE) 11/06/24 13:50 Urine Glucose (UA) 3+ (NEGATIVE) 11/06/24 13:50 Urine Ketones Negative (NEGATIVE) 11/06/24 13:50 Urine Blood 4+ (NEGATIVE) 11/06/24 13:50 Urine Nitrite Negative (NEGATIVE) 11/06/24 13:50 Urine Bilirubin Negative (NEGATIVE) 11/06/24 13:50 Urine Urobilinogen Normal (NORMAL) 11/06/24 13:50 Ur Leukocyte Esterase Negative (NEGATIVE) 11/06/24 13:50 Urine RBC 3-5 /HPF (0-3) A 11/06/24 13:50 Urine WBC None seen /HPF (0-5) 11/06/24 13:50 Ur Squamous Epith Cells Rare /HPF (NEGATIVE) 11/06/24 13:50 Amorphous Sediment 1+ /HPF (NEGATIVE) 11/06/24 13:50 Urine Bacteria Negative /HPF (NEGATIVE) 11/06/24 13:50 Hyaline Casts Rare /LPF (NEGATIVE) 11/06/24 13:50 Urine Mucus Few /HPF (NEGATIVE) 11/06/24 13:50 Ur Culture Indicated? No/not indicated 11/06/24 13:50 Plan (1) Adult failure to thrive: Status: Acute (2) Decubitus ulcer of sacral area: Status: Acute Qualifiers: Pressure injury stage: unspecified pressure injury stage Qualified Code(s): L89.159 - Pressure ulcer of sacral region, unspecified stage (3) COPD (chronic obstructive pulmonary disease): Status: Acute Qualifiers: COPD type: unspecified COPD Qualified Code(s): J44.9 - Chronic o bstructive pulmonary disease, unspecified (4) Dehydration, moderate: Status: Acute (5) Hypokalemia: Status: Acute (6) Bacteremia: Status: Acute
[2024-11-09] MEDS: K-DUR TAB 20 MEQ PO SCH (09:20)
[2024-11-09] MEDS: MAG-OX TAB PO SCH (09:20)
[2024-11-09] MEDS: ALBUMIN HUMAN 25%- 100 ML 100 ML IV SCH (11:24)
--- NOTE | 2024-11-09 15:09 | NOTE.SOAP ---
Soap Note Note for Day of Date of Exam: 11/09/24 Subjective Data Subjective Data: Patiently for morning rounds with son and nurse at bedside. No acute events overnight. Potassium was low. Vitals have been stable. Here pending placement for long-term care. Objective Data Objective Data: Emaciated, elderly male in NAD. Hearing intact conversation. Weakness of his right arm and leg. Heart regular rate and rhythm. Lungs diminished but clear. Speech is mildly dysarthric and slow. Assessment Assessment: 1. Large sacral decubitus ulcer-continue current. Appreciate surgery input. 2. Severe protein calorie malnutrition-supportive care. 3. Hypokalemia-replete per protocol. Appreciate pharmacy
[2024-11-10 04:57] LABS: BASOPHILS # (AUTO) 0.1 X10^3/uL (0.0-0.1); BASOPHILS % (AUTO) 1.4 % (0.2-1.0); EOSINOPHILS # (AUTO) 0.1 x10^3/uL (0.0-0.2); EOSINOPHILS % (AUTO) 1.3 % (0.9-2.9); HEMATOCRIT 41.6 % (42.0-54.0); HEMOGLOBIN 14.6 g/dL (13.5-18.0); LYMPHOCYTES # (AUTO) 0.3 X10^3/uL (1.3-2.9); LYMPHOCYTES % (AUTO) 4.5 % (21.0-51.0); MEAN CORPUSCULAR HEMOGLOBIN 34.9 pg (27.0-34.0); MEAN CORPUSCULAR HGB CONC 35.2 g/dL (33.0-35.0); MEAN PLATELET VOLUME 7.5 fL (7.4-11.0); MONOCYTES # (AUTO) 0.3 x10^3/uL (0.3-0.8); MONOCYTES % (AUTO) 4.4 % (0.0-13.0); NEUTROPHILS # (AUTO) 6.5 x10^3/uL (2.2-4.8); NEUTROPHILS % (AUTO) 88.4 % (42.0-75.0); PLATELET COUNT 71 X10^3/uL (150.0-450.0); RED CELL DISTRIBUTION WIDTH 14.8 % (11.6-16.5); WHITE BLOOD COUNT 7.4 X10^3/uL (3.6-10.0)
[2024-11-10 05:14] LABS: ALANINE AMINOTRANSFERASE 189 Units/L (12-78); ALBUMIN 1.9 g/dL (3.4-5.0); ALKALINE PHOSPHATASE 285 Units/L (46-116); ASPARTATE AMINO TRANSFERASE 166 Units/L (15-37); BLOOD UREA NITROGEN 7 mg/dL (7-18); CALCIUM 6.9 mg/dL (8.5-10.1); CARBON DIOXIDE 33.5 mmol/L (21-32); CHLORIDE 101 mmol/L (98-107); COR CA(FOR HYPOALB) 8.6 mg/dL (8.5-10.1); COR NA(FOR HYPERGLY) 140 mmol/L (136-145); CREATININE 0.44 mg/dL (0.70-1.30); GLUCOSE 125 mg/dL (65-99); MAGNESIUM 1.7 mg/dL (2.0-2.9); POTASSIUM 3.5 mmol/L (3.5-5.1); SODIUM 139 mmol/L (136-145); TOTAL PROTEIN 5.4 g/dL (6.4-8.2); eGFR NON BLACK RACES > 60 (>60)
[2024-11-10 05:20] LABS: BAND NEUTROPHILS % 1 % (0-10); PLATELET MORPHOLOGY COMMENT NORMAL (NORMAL)
[2024-11-10] MEDS ORDERED: CONSULT PHARMACY - POTASSIUM & MAGNESIUM XX SCH (06:00)
[2024-11-10] MEDS: MAG-OX TAB PO SCH (09:45)
[2024-11-10] MEDS: K-DUR TAB 20 MEQ PO SCH (09:46)
--- NOTE | 2024-11-10 14:21 | NOTE.SOAP ---
Soap Note Note for Day of Date of Exam: 11/10/24 Subjective Data Subjective Data: Patient seen for daily rounds. No acute events. No overnight issues per nursing. Son was at bedside earlier. Still planning on discharge to long-term care with plans for rehab if patient can tolerate it. Objective Data Objective Data: Emaciated, elderly male in no acute distress. Hearing intact conversation. Head NCAT. Heart regular rate and rhythm. Lungs diminished. Bowel sounds normal active, belly soft. Assessment Assessment: 1. Large sacral decubitus ulcer-continue current. Appreciate surgery input. 2. Severe protein calorie malnutrition-supportive care. 3. Hypokalemia-replete per protocol. Appreciate pharmacy input. 4. Adult failure to thrive-chronic. Will attempt rehab and then likely moved to palliative/hospice care. Plan Plan: Pending [facility] placement for subacute rehab. Plans are then to transition to long-term care per son.
--- NOTE | 2024-11-10 16:34 | NOTE.SOAP ---
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 Seen by me for right buttock decubitus . Decubitus being treated with topical Santyl. Objective Data Temperature: 98.2 F Pulse Rate: 90 Respiratory Rate: 20 Blood Pressure: 136/92 O2 Sat by Pulse Oximetry: 100 Objective Data: 12 x 8 cm full thickness wound to the right buttock. Patient is small and light and easy to rotate bed orientation. Wound is not an abscess. WBC=7.4 . Assessment Assessment: right buttock pressure wound Plan Plan: At this time will continue to treat this pressure wound with Santyl and rotate him in bed as much as possible to allow this wound to heel. May need surgical debridment in the future . Patietn need placement .
[2024-11-10] MEDS: NORVASC TAB 5 MG PO SCH (20:34)
[2024-11-11 05:50] LABS: BASOPHILS % (AUTO) 0.2 % (0.2-1.0); EOSINOPHILS % (AUTO) 0.4 % (0.9-2.9); HEMOGLOBIN 13.6 g/dL (13.5-18.0); LYMPHOCYTES # (AUTO) 0.6 X10^3/uL (1.3-2.9); LYMPHOCYTES % (AUTO) 8.4 % (21.0-51.0); MEAN CORPUSCULAR HEMOGLOBIN 35.4 pg (27.0-34.0); MEAN CORPUSCULAR HGB CONC 35.8 g/dL (33.0-35.0); MEAN CORPUSCULAR VOLUME 98.8 fL (80.0-100.0); MONOCYTES # (AUTO) 0.5 x10^3/uL (0.3-0.8); MONOCYTES % (AUTO) 6.8 % (0.0-13.0); NEUTROPHILS # (AUTO) 6.2 x10^3/uL (2.2-4.8); NEUTROPHILS % (AUTO) 84.2 % (42.0-75.0); PLATELET COUNT 71 X10^3/uL (150.0-450.0); RED BLOOD COUNT 3.85 X10^6/uL (4.7-6.0); RED CELL DISTRIBUTION WIDTH 14.9 % (11.6-16.5); WHITE BLOOD COUNT 7.3 X10^3/uL (3.6-10.0)
[2024-11-11 06:03] LABS: ALANINE AMINOTRANSFERASE 138 Units/L (12-78); ALKALINE PHOSPHATASE 225 Units/L (46-116); ASPARTATE AMINO TRANSFERASE 97 Units/L (15-37); BLOOD UREA NITROGEN 9 mg/dL (7-18); CALCIUM 6.8 mg/dL (8.5-10.1); CARBON DIOXIDE 32.9 mmol/L (21-32); CHLORIDE 101 mmol/L (98-107); COR CA(FOR HYPOALB) 8.4 mg/dL (8.5-10.1); COR NA(FOR HYPERGLY) 138 mmol/L (136-145); CREATININE 0.43 mg/dL (0.70-1.30); GLUCOSE 121 mg/dL (65-99); MAGNESIUM 1.7 mg/dL (2.0-2.9); POTASSIUM 3.7 mmol/L (3.5-5.1); SODIUM 137 mmol/L (136-145); TOTAL PROTEIN 5.2 g/dL (6.4-8.2); eGFR NON BLACK RACES > 60 (>60)
[2024-11-11] MEDS ORDERED: CONSULT PHARMACY - POTASSIUM & MAGNESIUM XX SCH (07:00)
[2024-11-11] MEDS: NS + KCL 20 MEQ/L 1,000 ML with MAGNESIUM SULFATE 50% INJ VIAL 1 G IV SCH (08:21)
[2024-11-11] MEDS ORDERED: K-DUR TAB 20 MEQ PO SCH (09:00)
[2024-11-11] MEDS ORDERED: MAG-OX TAB PO SCH (09:00)
--- NOTE | 2024-11-11 10:03 | PCM.PROG ---
Progress Note Progress Note for Day of Date of Exam: 11/11/24 Subjective Subjective: Patient seen at bedside, no acute events overnight. He is currently admitted for sacral ulcer, bacteremia, failure to thrive and dehydration. Dr Chopra has been following for the sacral decubitus ulcer. He is on IV antibiotics. His rehab placement has been denied by insurance as he is not a c andidate for any rehab. CM spoke to the son and he would like to take him home with hospice. Labs/imaging reviewed: -WBC 7.3 Hgb 13.6 Plt 71 BUN/Cr: 9/0.43 Mag 1.7 AST/JEREMIAS 97/138 -Blood Cx: proteus -Wound Cx: Proteus + E.coli Plan: repeat blood Cx. Continue IV antibiotics. Continue wound care as per surgery. Replace electrolytes as per protocol. Continue home medications. Continue pain control. CM working on discharge planning with patient's son. Monitor AM labs/imaging. Past Medical Family Social History Allergies: Allergies No Known Drug Allergies Allergy (Verified 01/22/19 21:48) Vital Signs and I&O's Vital Signs: Vital Signs Temperature 97.7 F Temperature 97.7 F Pulse Rate [Left Brachial] 85 Pulse Rate [Left Brachial] 79 Respiratory Rate 20 Respiratory Rate 18 Respiratory Rate 18 Respiratory Rate 20 Respiratory Rate 18 Respiratory Rate 18 Blood Pressure [Left Arm] 125/71 Blood Pressure [Left Arm] 115/73 O2 Sat by Pulse Oximetry 96 O2 Sat by Pulse Oximetry 95 Intake and Output: Intake & Output 11/08/24 11/09/24 11/10/24 11/11/24 23:59 23:59 23:59 23:59 Intake Total 2523 / 2523 2181 / 2181 2729 / 2729 711 / 711 Output Total 2124 / 2124 400 / 400 3850 / 3850 600 / 600 Balance 399 / 399 1781 / 1781 -1121 / -1121 111 / 111 Physical Exam Oriented: Unable to test Eyes: Normal Ear: Normal Nose: Normal Throat: Normal Respiratory: Diminished Cardiovascular: Normal Auscultation: Bowel Sounds: Normal Palpation: Normal Tenderness: Normal Skin: Wound (10 cm area of full thickness injury with no drainage or crepitance ) Musculoskeletal: Normal Psychiatric: Normal Mood Description: Calm Affect: Normal Speech Pattern: Clear and Appropriate Laboratory and Diagnostics 11/11/24 05:20 11/11/24 05:20 Labs: 11/06/24 13:50 Buttock Wound Culture - Final Proteus Vulgaris Escherichia Coli 11/05/24 17:01 Blood Blood Culture Gram Stain - Final 11/05/24 17:01 Blood Blood Culture - Final Proteus Vulgaris 11/05/24 16:51 Blood Blood Culture Gram Stain - Final 11/05/24 16:51 Blood Blood Culture - Final Proteus Vulgaris Laboratory WBC 7.3 X10^3/uL (3.6-10.0) 11/11/24 05:20 RBC 3.85 X10^6/uL (4.7-6.0) L 11/11/24 05:20 Hgb 13.6 g/dL (13.5-18.0) 11/11/24 05:20 Hct 38.0 % (42.0-54.0) L 11/11/24 05:20 MCV 98.8 fL (80.0-100.0) 11/11/24 05:20 MCH 35.4 pg (27.0-34.0) H 11/11/24 05:20 MCHC 35.8 g/dL (33.0-35.0) H 11/11/24 05:20 RDW 14.9 % (11.6-16.5) 11/11/24 05:20 Plt Count 71 X10^3/uL (150.0-450.0) L 11/11/24 05:20 Plt Count Comment Decreased (ADEQUATE) 11/10/24 04:40 MPV 8.0 fL (7.4-11.0) 11/11/24 05:20 Neut % (Auto) 84.2 % (42.0-75.0) H 11/11/24 05:20 Lymph % (Auto) 8.4 % (21.0-51.0) L 11/11/24 05:20 [place] % (Auto) 6.8 % (0.0-13.0) 11/11/24 05:20 Eos % (Auto) 0.4 % (0.9-2.9) L 11/11/24 05:20 Baso % (Auto) 0.2 % (0.2-1.0) 11/11/24 05:20 Neut # (Auto) 6.2 x10^3/uL (2.2-4.8) H 11/11/24 05:20 Lymph # (Auto) 0.6 X10^3/uL (1.3-2.9) L 11/11/24 05:20 [place] # (Auto) 0.5 x10^3/uL (0.3-0.8) 11/11/24 05:20 Eos # (Auto) 0.0 x10^3/uL (0.0-0.2) 11/11/24 05:20 Baso # (Auto) 0.0 X10^3/uL (0.0-0.1) 11/11/24 05:20 Absolute Nucleated RBC 0.1 /100WBC 11/11/24 05:20 Total Counted 100 11/10/24 04:40 Neutrophils % (Manual) 91 % (39-76) H 11/10/24 04:40 Band Neutrophils % 1 % (0-10) 11/10/24 04:40 Lymphocytes % (Manual) 6 % (13-43) L 11/10/24 04:40 Monocytes % (Manual) 2 % (4-9) L 11/10/24 04:40 Plt Morphology Comment Normal (NORMAL) 11/10/24 04:40 RBC Morphology Normal (NORMAL) 11/10/24 04:40 Sodium 137 mmol/L (136-145) 11/11/24 05:20 Corrected Sodium 138 mmol/L (136-145) 11/11/24 05:20 Potassium 3.7 mmol/L (3.5-5.1) 11/11/24 05:20 Chloride 101 mmol/L (98-107) 11/11/24 05:20 Carbon Dioxide 32.9 mmol/L (21-32) H 11/11/24 05:20 BUN 9 mg/dL (7-18) 11/11/24 05:20 Creatinine 0.43 mg/dL (0.70-1.30) L 11/11/24 05:20 Est GFR (MDRD) Af Amer > 60 (>60) 11/11/24 05:20 Est GFR (MDRD) Non-Af > 60 (>60) 11/11/24 05:20 Glucose 121 mg/dL (65-99) H 11/11/24 05:20 Calcium 6.8 mg/dL (8.5-10.1) L 11/11/24 05:20 Corrected Calcium 8.4 mg/dL (8.5-10.1) L 11/11/24 05:20 Magnesium 1.7 mg/dL (2.0-2.9) L 11/11/24 05:20 Total Bilirubin 1.10 mg/dL (0.2-1.0) H 11/11/24 05:20 AST 97 Units/L (15-37) H 11/11/24 05:20 ALT 138 Units/L (12-78) H 11/11/24 05:20 Alkaline Phosphatase 225 Units/L (46-116) H 11/11/24 05:20 Total Protein 5.2 g/dL (6.4-8.2) L 11/11/24 05:20 Albumin 2.0 g/dL (3.4-5.0) L 11/11/24 05:20 Globulin 3.2 g/dL (2.5-4.5) 11/11/24 05:20 Albumin/Globulin Ratio 0.6 Ratio (1.1-2.1) L 11/11/24 05:20 Specimen Type Catherized urine 11/06/24 13:50 Urine Color Yellow (YELLOW) 11/06/24 13:50 Urine Appearance Clear (CLEAR) 11/06/24 13:50 Urine pH 6.0 (5.0 - 8.0) 11/06/24 13:50 Ur Specific [place] 1.015 (1.000-1.030) 11/06/24 13:50 Urine Protein 2+ (NEGATIVE) 11/06/24 13:50 Urine Glucose (UA) 3+ (NEGATIVE) 11/06/24 13:50 Urine Ketones Negative (NEGATIVE) 11/06/24 13:50 Urine Blood 4+ (NEGATIVE) 11/06/24 13:50 Urine Nitrite Negative (NEGATIVE) 11/06/24 13:50 Urine Bilirubin Negative (NEGATIVE) 11/06/24 13:50 Urine Urobilinogen Normal (NORMAL) 11/06/24 13:50 Ur Leukocyte Esterase Negative (NEGATIVE) 11/06/24 13:50 Urine RBC 3-5 /HPF (0-3) A 11/06/24 13:50 Urine WBC None seen /HPF (0-5) 11/06/24 13:50 Ur Squamous Epith Cells Rare /HPF (NEGATIVE) 11/06/24 13:50 Amorphous Sediment 1+ /HPF (NEGATIVE) 11/06/24 13:50 Urine Bacteria Negative /HPF (NEGATIVE) 11/06/24 13:50 Hyaline Casts Rare /LPF (NEGATIVE) 11/06/24 13:50 Urine Mucus Few /HPF (NEGATIVE) 11/06/24 13:50 Ur Culture Indicated? No/not indicated 11/06/24 13:50 Plan (1) Adult failure to thrive: Status: Acute (2) Decubitus ulcer of sacral area: Status: Acute Qualifiers: Pressure injury stage: unspecified pressure injury stage Qualified Code(s): L89.159 - Pressure ulcer of sacral region, unspecified stage (3) COPD (chronic obstructive pulmonary disease): Status: Acute Qualifiers: COPD type: unspecified COPD Qualified Code(s): J44.9 - Chronic obstructive pulmonary disease, unspecified (4) Dehydration, moderate: Status: Acute (5) Hypokalemia: Status: Acute (6) Bacteremia: Status: Acute (7) Hypomagnesemia: Status: Acute (8) Limited mobility: Status: Acute
[2024-11-11] MEDS: PERCOCET TAB 5/325 MG PO PRN (12:44)
[2024-11-12 05:01] VITALS: RESP 16
[2024-11-12 06:35] LABS: BASOPHILS % (AUTO) 0.5 % (0.2-1.0); EOSINOPHILS # (AUTO) 0.1 x10^3/uL (0.0-0.2); EOSINOPHILS % (AUTO) 0.8 % (0.9-2.9); HEMATOCRIT 34.8 % (42.0-54.0); HEMOGLOBIN 12.5 g/dL (13.5-18.0); LYMPHOCYTES # (AUTO) 0.6 X10^3/uL (1.3-2.9); LYMPHOCYTES % (AUTO) 7.3 % (21.0-51.0); MEAN CORPUSCULAR HEMOGLOBIN 35.3 pg (27.0-34.0); MEAN CORPUSCULAR HGB CONC 35.8 g/dL (33.0-35.0); MEAN CORPUSCULAR VOLUME 98.4 fL (80.0-100.0); MEAN PLATELET VOLUME 7.9 fL (7.4-11.0); MONOCYTES # (AUTO) 0.5 x10^3/uL (0.3-0.8); MONOCYTES % (AUTO) 6.3 % (0.0-13.0); NEUTROPHILS # (AUTO) 6.7 x10^3/uL (2.2-4.8); NEUTROPHILS % (AUTO) 85.1 % (42.0-75.0); PLATELET COUNT 80 X10^3/uL (150.0-450.0); RED BLOOD COUNT 3.53 X10^6/uL (4.7-6.0); RED CELL DISTRIBUTION WIDTH 14.8 % (11.6-16.5); WHITE BLOOD COUNT 7.9 X10^3/uL (3.6-10.0)
[2024-11-12 06:50] LABS: ALANINE AMINOTRANSFERASE 103 Units/L (12-78); ALBUMIN 2.2 g/dL (3.4-5.0); ALKALINE PHOSPHATASE 184 Units/L (46-116); ASPARTATE AMINO TRANSFERASE 62 Units/L (15-37); BLOOD UREA NITROGEN 11 mg/dL (7-18); CALCIUM 7.2 mg/dL (8.5-10.1); CHLORIDE 102 mmol/L (98-107); COR CA(FOR HYPOALB) 8.6 mg/dL (8.5-10.1); COR NA(FOR HYPERGLY) 138 mmol/L (136-145); CREATININE 0.42 mg/dL (0.70-1.30); GLUCOSE 114 mg/dL (65-99); POTASSIUM 3.8 mmol/L (3.5-5.1); SODIUM 138 mmol/L (136-145); TOTAL PROTEIN 5.3 g/dL (6.4-8.2); eGFR NON BLACK RACES > 60 (>60)
[2024-11-12 09:28] VITALS: BP 164/89; PULSE 79; TEMP 98.8; O2SAT 97
== END 2024-11-12 12:05 | disposition hospice, home (50) | DRG 593 ==
LOC: ER 16:00 → MED/SURG 16:00
PROVIDERS: ADMIT Family Medicine; ATTEND Family Medicine
DX: B96.29 Other Escherichia coli [E. coli] as the cause of diseases classified elsewhere; I10 Essential (primary) hypertension; R62.7 Adult failure to thrive; Z16.19 Resistance to other specified beta lactam antibiotics; J44.1 Chronic obstructive pulmonary disease with (acute) exacerbation; Z74.1 Need for assistance with personal care; Z59.86 Financial insecurity; R26.89 Other abnormalities of gait and mobility; E86.0 Dehydration; Z16.12 Extended spectrum beta lactamase (ESBL) resistance; L89.159 Pressure ulcer of sacral region, unspecified stage; E87.6 Hypokalemia; Z99.81 Dependence on supplemental oxygen; Z68.1 Body mass index [BMI] 19.9 or less, adult; Z72.0 Tobacco use; I69.820 Aphasia following other cerebrovascular disease; R73.09 Other abnormal glucose; I25.10 Atherosclerotic heart disease of native coronary artery without angina pectoris; E46 Unspecified protein-calorie malnutrition; Z16.11 Resistance to penicillins; B96.4 Proteus (mirabilis) (morganii) as the cause of diseases classified elsewhere; E83.42 Hypomagnesemia; I69.851 Hemiplegia and hemiparesis following other cerebrovascular disease affecting right dominant side; R78.81 Bacteremia; Z74.09 Other reduced mobility